=== PATIENT | female | born 1995 | race Caucasian/White ===

== ENCOUNTER 2019-09-12 01:23 | Inpatient (IN) | payer OTHER ==
[2019-09-12 02:02] VITALS: BMI 32.3
[2019-09-12] MEDS ORDERED: LACTATED RINGERS SOLUTION 1,000 ML/1,000 ML INFUS.BAG IV STA (02:08)
[2019-09-12] MEDS ORDERED: FAMOTIDINE 20 MG/50 ML IVPB 20 MG/50 ML MG IVPB ONE ×2 (02:08→02:40)
[2019-09-12] MEDS ORDERED: morphine CARPU-JECT 4 MG/1 ML DISP.SYRIN IVPUSH ONE ×2 (02:08→04:20)
--- NOTE | 2019-09-12 02:32 | PDOC ---
History of Present Illness - General Chief Complaint: Pain, Acute Stated Complaint: ABD PAIN Time Seen by Provider: 09/12/19 02:13 History Source: Patient Exam Limitations: No Limitations - History of Present Illness Initial Comments: 09/12/19 02:27 24 yo female no sig pmh, 3 months post ( full term C section delivery , no complications) presents to the ED with sudden onset abdominal pain. Pt states at 1 am she had sudden onset epigastric pain radiating straight through into her back described as sharp and stabbing with worsening intensity. Pt denies hx of abdominal pain in the past, no relation to eating. Pt admits to 2 episodes of NB/NB vomiting after abdominal pain. Denies F/C, CP, SOB, new foods , sick contacts. Past History - Past Medical History Allergies/Adverse Reactions: Allergies Allergy/AdvReac Type Severity Reaction Status Date / Time No Known Drug Allergies Allergy Verified 09/12/19 02:01 Home Medications: Ambulatory Orders Diphenhydramine [Benadryl -] 50 mg PO TID PRN #24 capsule 08/25/18 EPINEPHrine (EPI-PEN 0.3MG) [Epipen 0.3MG -] 0.3 mg IM ASDIR #2 pens 08/25/18 Prednisone [Prednisone 50 MG TABLETS] 50 mg PO DAILY #2 tablet 08/25/18 Anemia: Yes Asthma: No Cancer: No Cardiac Disorders: No CVA: No COPD: No CHF: No Dementia: No Diabetes: No GI Disorders: Yes (CONSTIPATION) Disorders: No HTN: No Hypercholesterolemia: No Liver Disease: No Seizures: No Thyroid Disease: No - Surgical History Abdominal Surgery: No Appendectomy: No Cardiac Surgery: No Cholecystectomy: No Lung Surgery: No Neurologic Surgery: No Orthopedic Surgery: Yes (ORIF R ANKLE) - Immunization History Immunization Up to Date: No - Psycho Social/Smoking Cessation Hx Smoking History: Never smoked Have you smoked in the past 12 months: No Hx Alcohol Use: No Drug/Substance Use Hx: No Substance Use Type: None Hx Substance Use Treatment: No Review of Systems - Review of Systems Constitutional: No: Chills, Fever Respiratory: No: Shortness of Breath Cardiac (ROS): No: Chest Pain ABD/GI: Yes: Nausea, Vomiting, Other (epigastric pain radiating to her back). No: Abdominal Distended, Constipated, Diarrhea Musculoskeletal: Yes: Back Pain Neurological: No: Headache, Numbness, Paresthesia *Physical Exam - Vital Signs Last Vital Signs Temp Pulse Resp BP Pulse Ox 98.5 F 98 H 17 133/98 97 09/12/19 01:25 09/12/19 01:25 09/12/19 01:25 09/12/19 01:25 09/12/19 01:25 - Physical Exam General Appearance: Yes: Nourished, Appropriately Dressed. No: Apparent Distress HEENT: positive: EOMI Neck: positive: Supple. negative: Carotid bruit Respiratory/Chest: positive: Lungs Clear, Normal Breath Sounds. negative: Respiratory Distress, Accessory Muscle Use, Crackles, Rales, Rhonchi, Stridor, Wheezing Cardiovascular: positive: Regular Rhythm, Regular Rate, S1, S2. negative: Edema , JVD, Murmur Vascular Pulses: Dorsalis-Pedis (R): 4+, Doralis-Pedis (L): 4+ Gastrointestinal/Abdominal: positive: Flat, Soft, Tenderness (epigastric), Other (positive sono murphys). negative: Pulsatile Mass, Protuberent, Distended , Guarding, Rebound Musculoskeletal: negative: CVA Tenderness Extremity: positive: Normal Capillary Refill, Normal Inspection, Normal Range of Motion Integumentary: positive: Normal Color, Dry, Warm Neurologic: positive: Fully Oriented, Alert, Normal Mood/Affect, Normal Response ED Treatment Course - LABORATORY CBC & Chemistry Diagram: 09/12/19 02:37 09/12/19 02:30 Medical Decision Making - Medical Decision Making 09/12/19 02:32 24 yo female no sig pmh, 3 months post ( full term C section delivery , no complications) presents to the ED with sudden onset abdominal pain. Pt states at 1 am she had sudden onset epigastric pain radiating straight through into her back described as sharp and stabbing with worsening intensity. Pt denies hx of abdominal pain in the past, no relation to eating. Pt admits to 2 episodes of NB/NB vomiting after abdominal pain. Denies F/C, CP, SOB, new foods , sick contacts. vitals WNL Pt appears uncomfortable holding her abdomen in pain. Fluids, pepcid and morphine ordered along with labs Pain relieved with morphine 09/12/19 05:03 bedside sono RUQ ED shows likely stones, 3.7 mm anterior GB wall thickening, distended CBD Will treat pt pain and keep for official sono AM Labs WNL mild elevation alk phos, AST/ALT Pt states pain returned, morphine re dosed will s/o to day team for f/u sono Pt required more pain control, 1mg Dilaudid given Discussed case with Dr. Black in Gen Surg, states pt should be given antibiotics and admitted. Pending official US S/O to day team [employer] sent Discharge - Discharge Information Problems reviewed: Yes Clinical Impression/Diagnosis: Abdominal pain Condition: Fair - Follow up/Referral - Patient Discharge Instructions - Post Discharge Activity
[2019-09-12] MEDS ORDERED: ONDANSETRON 4 MG/2 ML VIAL IVPUSH ONE (02:34)
[2019-09-12] MEDS ORDERED: morphine SULFATE 4 MG/ML VIAL ONE ×2 (02:39→04:19)
[2019-09-12] MEDS ORDERED: ONDANSETRON 4 MG/2 ML VIAL ONE (02:39)
[2019-09-12 02:57] LABS: BASO % 0.5 % (0-2.0); EOS % 4.3 % (0-4.5); HEMATOCRIT 39.3 % (32.4-45.2); HEMOGLOBIN 13.1 GM/dL (10.7-15.3); LYMPH % 24.3 % (8-40); MCH 29.8 pg (25.7-33.7); MCHC 33.2 g/dl (32.0-36.0); MEAN CELL VOLUME 89.6 fl (80-96); MEAN PLT VOLUME 9.2 fl (7.5-11.1); MONO % 6.2 % (3.8-10.2); NEUT % 64.7 % (42.8-82.8); PLATELET COUNT 272 K/MM3 (134-434); RBC 4.38 M/mm3 (3.60-5.2); RDW 13.2 % (11.6-15.6); WHITE BLOOD COUNT 11.4 K/mm3 (4.0-10.0)
[2019-09-12 03:11] LABS: INR 0.92 (0.83-1.09); PROTHROMBIN TIME (PATIENT) 10.8 SEC (9.7-13.0)
[2019-09-12 03:14] LABS: ACTIVATED PTT 35.8 SECONDS (25.2-36.5)
[2019-09-12 03:44] LABS: ALBUMIN 3.7 g/dl (3.4-5.0); BILIRUBIN,TOTAL 0.6 mg/dL (0.2-1); BLOOD UREA NITROGEN 22.2 mg/dL (7-18); CALCIUM 9.3 mg/dL (8.5-10.1); CREATININE 0.9 mg/dL (0.55-1.3); POTASSIUM 4.1 mmol/L (3.5-5.1); TOT PROT 7.5 g/dl (6.4-8.2)
--- NOTE | 2019-09-12 03:49 | PDOC ---
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 + nausea, no vomiting, no diarrhea. Pt immediately came to the ED, has approx 20 min of pain on presentation. Writhing in stretcher. - Physicial Exam PE: 09/12/19 03:47 NAD, writhing on stretcher RRR CTABL epig and RUQ ttp, + cazares's, + vol guarding, no rebound. A&O x 3 - Medical Decision Making 09/12/19 03:47 24yoF w/ acute onset of RUQ/epig severe pain just before ED arrival, concern for biliary colic. Bedside ultaround + stone, + GBW approx 3mm, CBD approx 6mm. - labs - official sono - ivf, pain control - Dispo per results.
[2019-09-12] MEDS ORDERED: HYDROmorphone HCL CARPU-JECT 2 MG/1 ML DISP.SYRIN IVPUSH ONE (05:57)
[2019-09-12] MEDS ORDERED: HYDROmorphone HCl 2 MG/ML VIAL ONE (06:24)
[2019-09-12] MEDS ORDERED: LACTATED RINGERS SOLUTION 1000 ML INFUS.BAG IV ONE (06:31)
[2019-09-12] MEDS ORDERED: CEFAZOLIN 1 GM/D5W 1 GM/50 ML BAG IVPB ONE (06:37)
[2019-09-12] MEDS ORDERED: CEFAZOLIN 1 GM/D5W 1 GM/50 ML BAG ONE (06:46)
[2019-09-12 09:41] LABS: ALBUMIN 3.2 g/dl (3.4-5.0); BILIRUBIN,TOTAL 0.2 mg/dL (0.2-1); BLOOD UREA NITROGEN 16.4 mg/dL (7-18); CALCIUM 8.5 mg/dL (8.5-10.1); CREATININE 0.8 mg/dL (0.55-1.3); POTASSIUM 4.3 mmol/L (3.5-5.1); TOT PROT 6.5 g/dl (6.4-8.2)
[2019-09-12] MEDS ORDERED: MORPHINE SULFATE 2 MG/ML VIAL ONE (12:45)
[2019-09-12] MEDS: MORPHINE SULFATE 2 MG/ML VIAL IVPUSH PRN ×3 (12:45→22:05)
[2019-09-12] MEDS: SODIUM CHLORIDE 1,000 ML IV SCH (13:37)
--- NOTE | 2019-09-12 15:30 | CONS ---
DATE OF CONSULTATION: 09/12/2019 REASON FOR CONSULTATION: Acute cholecystitis, cholelithiasis, abnormal liver function tests. BRIEF HISTORY: This is a 24-year-old female 3 months presents with epigastric right upper quadrant pain radiating to her back and shoulder. She was noted to have elevated liver function tests with an AST of 138, an ALT of 140, an alkaline phosphatase of 123 with elevated white blood cell count of 11.4 without a shift. She had an ultrasound done of her gallbladder, which shows stones, mild thickening, and a small amount of pericholecystic fluid with a normal-sized common bile duct. She is being admitted to the hospital for possible acute cholecystitis, and because of her elevated liver function tests, at my request is getting an MRCP to evaluate her bile duct. PAST MEDICAL HISTORY: Otherwise negative. PAST SURGICAL HISTORY: Significant for section. ALLERGIES: She has no known drug allergies. MEDICATIONS: She takes no medications. SOCIAL HISTORY: Negative for alcohol. Negative for tobacco. FAMILY HISTORY: Negative for malignancy in the immediate family. PHYSICAL EXAMINATION: General: This is a well-developed, well-nourished 24-year-old female in no distress. Vital Signs: She is afebrile. Her vital signs are stable. HEENT: Her head is normocephalic. Her sclerae are anicteric. Neck: Supple. Chest: Clear. Abdomen: Soft. She has mild right upper quadrant tenderness. She has minimal epigastric tenderness. She has no lower abdominal tenderness. She has a well-healed Pfannenstiel incision. Extremities: No edema. Review of her laboratory is as stated in HPI. ASSESSMENT: A 24-year-old female with right upper quadrant abdominal pain radiating to her back, nausea, and vomiting. She has ultrasound findings showing stones, some thickening, and possible cholecystic fluid, which could be consistent with acute cholecystitis. She also has elevated liver function tests, which could be consistent with choledocholithiasis versus fatty liver disease and mild sepsis. PLAN: At this point, we will get an MRCP to evaluate the common bile duct. If there is no evidence of choledocholithiasis, we will likely proceed with cholecystectomy this admission. Obviously, if there is evidence of choledocholithiasis, she will need a GI evaluation for ERCP. Patient is currently nontoxic. Recommend admission. Recommend IV antibiotics. Risks and benefits of surgery have been explained to the patient in detail. These are including, but not limited to, the possibility of conversion to open, the possibility of common bile duct injury, the possibility of cystic duct stump leak, possibility of injury to viscera, possibility of blood loss requiring blood transfusion, possibility of retained stone, possibility of future hernia, possibility of future obstruction plus a multitude of medical risks including, but not limited to, cardiac, neurologic, pulmonary, and vascular complications even . The patient understands these risks and is agreeable to surgery. DO DONA JIMÉNEZ/[id number]
--- NOTE | 2019-09-12 16:04 | HP ---
CHIEF COMPLAINT: Abd pain HISTORY OF PRESENT ILLNESS: Patient is a 24 yo Obese F with no significant pmh, 3 months (full term, no complications, ), presenting to the ED for sudden 10/10, epigastric abdominal pain that started at 1am last night that radiated to her back. Patient said this never happened to her before. She said she ate a smoothie a few hours before and does not associate the pain with food. She also admits to having nausea and 4 episodes of NBNB vomiting. Denies F/C, CP, SOB, new foods, sick contacts. In the ER bedside sono RUQ ED shows likely stones, 3.7 mm anterior GB wall thickening, distended CBD. Case was discussed case with Dr. Black (surger), and wanted patient admitted pending official ulrasound. ER course was notable for: (1) 2L IV fluids LR (2) Ancef (3) Morphine for pain Recent Travel: denies Social History: Smoking: denies Alcohol: denies Drugs: denies Allergies No Known Drug Allergies Allergy (Verified 09/12/19 02:01) HOME MEDICATIONS: Home Medications Medication Instructions Recorded NK [No Known Home Medication] 09/12/19 REVIEW OF SYSTEMS CONSTITUTIONAL: Absent: fever, chills, diaphoresis, generalized weakness, malaise, loss of appetite, weight change HEENT: Absent: rhinorrhea, nasal congestion, throat pain, throat swelling, difficulty swallowing, mouth swelling, ear pain, eye pain, visual changes CARDIOVASCULAR: Absent: chest pain, syncope, palpitations, irregular heart rate, lightheadedness , peripheral edema RESPIRATORY: Absent: cough, shortness of breath, dyspnea with exertion, orthopnea, wheezing, stridor, hemoptysis GASTROINTESTINAL: abd pain, nausea, vomiting Absent: abdominal distension, diarrhea, constipation, melena, hematochezia GENITOURINARY: Absent: dysuria, frequency, urgency, hesitancy, hematuria, flank pain, genital pain PHYSICAL EXAMINATION Vital Signs - 24 hr 09/12/19 09/12/19 09/12/19 01:25 07:04 13:06 Temperature 98.5 F 97.4 F L Pulse Rate 98 H Pulse Rate [ 76 92 H Left] Respiratory 17 18 18 Rate Blood Pressure 133/98 Blood Pressure 109/63 138/76 [Left Arm] O2 Sat by Pulse 97 99 99 Oximetry (%) 09/12/19 15:20 Temperature 97.8 F Pulse Rate Pulse Rate [ Left] Respiratory 58 H Rate Blood Pressure Blood Pressure 100/51 L [Left Arm] O2 Sat by Pulse 97 Oximetry (%) GENERAL: a/o x 3, in nad, comfortable HEAD: Normal with no signs of trauma. EYES: Pupils equal, round and reactive to light EARS, NOSE, THROAT: oropharynx clear without exudates. NECK:supple without lymphadenopathy, JVD, or masses. LUNGS: Breath sounds equal, clear to auscultation bilaterally. No wheezes, and no crackles. No accessory muscle use. HEART: Regular rate and rhythm, normal S1 and S2 without murmur, rub or gallop. ABDOMEN: Soft, mild epigastric tenderness, negative murphys, no guarding LOWER EXTREMITIES: 2+ pulses, warm, well-perfused. No calf tenderness. No peripheral edema. NEUROLOGICAL: Cranial nerves II-XII intact. Laboratory Results - last 24 hr 09/12/19 09/12/19 09/12/19 02:30 02:30 02:30 WBC RBC Hgb Hct MCV MCH MCHC RDW Plt Count MPV Absolute Neuts (auto) Neutrophils % Lymphocytes % Monocytes % Eosinophils % Basophils % Nucleated RBC % PT with INR INR PTT (Actin FS) Sodium 141 Potassium 4.1 Chloride 108 H Carbon Dioxide 25 Anion Gap 8 BUN 22.2 H Creatinine 0.9 Est GFR (CKD-EPI)AfAm 102.28 Est GFR (CKD-EPI)NonAf 88.25 Random Glucose 111 H Calcium 9.3 Total Bilirubin 0.6 AST 54 H ALT 69 H Alkaline Phosphatase 138 H Total Protein 7.5 Albumin 3.7 Lipase 107 Serum , Qual Negative Influenza A (Rapid) Influenza B (Rapid) Blood Type Antibody Screen 09/12/19 09/12/19 09/12/19 02:37 02:37 02:37 WBC 11.4 H RBC 4.38 Hgb 13.1 Hct 39.3 D MCV 89.6 MCH 29.8 MCHC 33.2 RDW 13.2 D Plt Count 272 D MPV 9.2 Absolute Neuts (auto) 7.4 Neutrophils % 64.7 Lymphocytes % 24.3 Monocytes % 6.2 Eosinophils % 4.3 Basophils % 0.5 Nucleated RBC % 0 PT with INR 10.80 INR 0.92 PTT (Actin FS) 35.8 Sodium Potassium Chloride Carbon Dioxide Anion Gap BUN Creatinine Est GFR (CKD-EPI)AfAm Est GFR (CKD-EPI)NonAf Random Glucose Calcium Total Bilirubin AST ALT Alkaline Phosphatase Total Protein Albumin Lipase Serum , Qual Influenza A (Rapid) Influenza B (Rapid) Blood Type O POSITIVE Antibody Screen Negative 09/12/19 09/12/19 08:55 13:05 WBC RBC Hgb Hct MCV MCH MCHC RDW Plt Count MPV Absolute Neuts (auto) Neutrophils % Lymphocytes % Monocytes % Eosinophils % Basophils % Nucleated RBC % PT with INR INR PTT (Actin FS) Sodium 140 Potassium 4.3 Chloride 109 H Carbon Dioxide 25 Anion Gap 6 L BUN 16.4 Creatinine 0.8 Est GFR (CKD-EPI)AfAm 117.93 Est GFR (CKD-EPI)NonAf 101.75 Random Glucose 92 Calcium 8.5 Total Bilirubin 0.2 AST 138 H ALT 140 H Alkaline Phosphatase 123 H Total Protein 6.5 Albumin 3.2 L Lipase Serum , Qual Influenza A (Rapid) Negative Influenza B (Rapid) Negative Blood Type Antibody Screen ASSESSMENT/PLAN: 24 yo Obese F with no significant pmh, 3 months (full term, no complications, ), presenting to the ED for sudden 10/10, epigastric abdominal pain that started at 1am last night that radiated to her back. #Abdominal pain -r/o acute cholecystitis vs choledochololithiasis -official US: small gallstones with wall thickening and trace of pericholcystic fluid. borderline hepatomegaly with fatty liver -MRCP ordered to rule out choledo -Surgery on board: Dr. Black -pain control with morphine -cxr unremarkable -UA -npo after midnight -IV fluids -clear liquid diet for now #transaminitis -could be from above problem -send hep panel -ggt -GI consult #FEN -iv fluids -monitor -clear liquid. make npo if surgery required #dvt ppx -eab -hep sq Visit type - Emergency Visit Emergency Visit: Yes ED Registration Date: 09/12/19 Care time: The patient presented to the Emergency Department on the above date and was hospitalized for further evaluation of their emergent condition. - New Patient This patient is new to me today: Yes Date on this admission: 09/12/19 - Critical Care Critical Care patient: No ATTENDING PHYSICIAN STATEMENT I saw and evaluated the patient. I reviewed the resident's note and discussed the case with the resident. I agree with the resident's findings and plan as documented. SUBJECTIVE: OBJECTIVE: ASSESSMENT AND PLAN:
--- NOTE | 2019-09-12 18:01 | PN ---
Physical Exam: 24 female, no reported PMHx, 3 months (full term, no complications, ), presenting to the ED for sudden 10/10, epigastric abdominal pain that started at 1am last night that radiated to her back. Patient endorses she had eaten some potato chips and a smoothie, began to breast feed when she started to full sharp epigastric pain radiating to back a/ w 4 episodes NBNB vomiting. Patient endorses first time she experiences abdominal pain like this. Denies F/C, CP, SOB, new foods, sick contacts. RUQ US shows thickened GB w/ trace pericholecytic free fluid and small intraluminal stones w/ no intra/extra hepatic bile duct dilatation, cazares sign negative. Patient to be evaluated by Surgery service for possible lap jose francisco. PE GA mild distress, AAox3, speaking in full sentences HEENT NC/AT, EOMI, MMM, neck supple Chest CTAB, no crackles or wheezing CVS s1, S2+, RRR, no m/r/g Abd obese, soft, mild epigastric tenderness to deep palpation, BS+, no guarding , no HSM Ext No LE edema, no calf tenderness, moves all 4 ext no CVA tenderness, no pelvic/suprapubic tenderness Vital Signs - 24 hr 09/12/19 09/12/19 09/12/19 01:25 07:04 13:06 Temperature 98.5 F 97.4 F L Pulse Rate 98 H Pulse Rate [ 76 92 H Left] Respiratory 17 18 18 Rate Blood Pressure 133/98 Blood Pressure 109/63 138/76 [Left Arm] O2 Sat by Pulse 97 99 99 Oximetry (%) 09/12/19 15:20 Temperature 97.8 F Pulse Rate Pulse Rate [ Left] Respiratory 58 H Rate Blood Pressure Blood Pressure 100/51 L [Left Arm] O2 Sat by Pulse 97 Oximetry (%) Laboratory Results - last 24 hr 09/12/19 09/12/19 09/12/19 02:30 02:30 02:30 WBC RBC Hgb Hct MCV MCH MCHC RDW Plt Count MPV Absolute Neuts (auto) Neutrophils % Lymphocytes % Monocytes % Eosinophils % Basophils % Nucleated RBC % PT with INR INR PTT (Actin FS) Sodium 141 Potassium 4.1 Chloride 108 H Carbon Dioxide 25 Anion Gap 8 BUN 22.2 H Creatinine 0.9 Est GFR (CKD-EPI)AfAm 102.28 Est GFR (CKD-EPI)NonAf 88.25 Random Glucose 111 H Calcium 9.3 Total Bilirubin 0.6 AST 54 H ALT 69 H Alkaline Phosphatase 138 H Total Protein 7.5 Albumin 3.7 Lipase 107 Serum , Qual Negative Influenza A (Rapid) Influenza B (Rapid) Blood Type Antibody Screen 09/12/19 09/12/19 09/12/19 02:37 02:37 02:37 WBC 11.4 H RBC 4.38 Hgb 13.1 Hct 39.3 D MCV 89.6 MCH 29.8 MCHC 33.2 RDW 13.2 D Plt Count 272 D MPV 9.2 Absolute Neuts (auto) 7.4 Neutrophils % 64.7 Lymphocytes % 24.3 Monocytes % 6.2 Eosinophils % 4.3 Basophils % 0.5 Nucleated RBC % 0 PT with INR 10.80 INR 0.92 PTT (Actin FS) 35.8 Sodium Potassium Chloride Carbon Dioxide Anion Gap BUN Creatinine Est GFR (CKD-EPI)AfAm Est GFR (CKD-EPI)NonAf Random Glucose Calcium Total Bilirubin AST ALT Alkaline Phosphatase Total Protein Albumin Lipase Serum , Qual Influenza A (Rapid) Influenza B (Rapid) Blood Type O POSITIVE Antibody Screen Negative 09/12/19 09/12/19 08:55 13:05 WBC RBC Hgb Hct MCV MCH MCHC RDW Plt Count MPV Absolute Neuts (auto) Neutrophils % Lymphocytes % Monocytes % Eosinophils % Basophils % Nucleated RBC % PT with INR INR PTT (Actin FS) Sodium 140 Potassium 4.3 Chloride 109 H Carbon Dioxide 25 Anion Gap 6 L BUN 16.4 Creatinine 0.8 Est GFR (CKD-EPI)AfAm 117.93 Est GFR (CKD-EPI)NonAf 101.75 Random Glucose 92 Calcium 8.5 Total Bilirubin 0.2 AST 138 H ALT 140 H Alkaline Phosphatase 123 H Total Protein 6.5 Albumin 3.2 L Lipase Serum , Qual Influenza A (Rapid) Negative Influenza B (Rapid) Negative Blood Type Antibody Screen Home Medications Medication Instructions Recorded NK [No Known Home Medication] 09/12/19 Current Medications Generic Name Dose Route Start Last Admin Trade Name Freq PRN Reason Stop Dose Admin Heparin Sodium (Porcine) 5,000 unit 09/12/19 22:00 Heparin - SQ 09/13/19 00:00 BID LONNY Sodium Chloride 1,000 mls @ 83 mls/hr 09/12/19 12:00 09/12/19 13:37 Normal Saline - IV 83 mls/hr ASDIR LONNY Administration Morphine Sulfate 2 mg 09/12/19 11:52 09/12/19 17:47 Morphine Sulfate IVPUSH 2 mg Q4H PRN Administration PAIN LEVEL 6-10 A/P: 24 obese F presents with sudden epigastric pain radiaiting to back after eating potato chips and a smoothie, admitted for management of suspected acute cholecystitis. Epigastric pain radiaiting to back lipase normal, unlikely d/t pancreatitis, HCG negative, biliary US findings suggestive of ?acute cholecystitis MRCP ordered to rule out choledolithiasis IVF, pain control, UA, coags, CXR Surgery on board: Dr. Black Transaminitis CBD normal, ?fatty liver infiltration v.s. choledolithiasis, will need MRCP prior to cholecystectomy send Hepatitis panel (?Hep A), GGT GI consult FEN -iv fluids -monitor -clear liquid. make npo if surgery required DVT ppx: Heparin SC Med surg Visit type - Emergency Visit Emergency Visit: Yes ED Registration Date: 09/12/19 Care time: The patient presented to the Emergency Department on the above date and was hospitalized for further evaluation of their emergent condition. - New Patient This patient is new to me today: Yes Date on this admission: 09/12/19 - Critical Care Critical Care patient: No - Discharge Referral Referred to [facility] No
[2019-09-12] MEDS ORDERED: HEPARIN NA (PORCINE) 5,000 UNITS/ML 1ML VIAL SQ SCH (22:00)
[2019-09-13] MEDS: MORPHINE SULFATE 2 MG/ML VIAL IVPUSH PRN ×2 (02:04→06:36)
[2019-09-13 08:15] LABS: BASO % 0.4 % (0-2.0); EOS % 6.9 % (0-4.5); HEMATOCRIT 33.6 % (32.4-45.2); HEMOGLOBIN 11.4 GM/dL (10.7-15.3); LYMPH % 46.3 % (8-40); MCH 30.3 pg (25.7-33.7); MEAN PLT VOLUME 8.8 fl (7.5-11.1); MONO % 7.9 % (3.8-10.2); NEUT % 38.5 % (42.8-82.8); PLATELET COUNT 224 K/MM3 (134-434); RBC 3.77 M/mm3 (3.60-5.2); RDW 13.2 % (11.6-15.6); WHITE BLOOD COUNT 5.8 K/mm3 (4.0-10.0)
[2019-09-13 08:32] LABS: BILIRUBIN,TOTAL 0.5 mg/dL (0.2-1); BLOOD UREA NITROGEN 10.8 mg/dL (7-18); CALCIUM 8.6 mg/dL (8.5-10.1); CREATININE 0.8 mg/dL (0.55-1.3); MAGNESIUM 2.1 mg/dL (1.8-2.4); POTASSIUM 3.8 mmol/L (3.5-5.1)
[2019-09-13] MEDS: SODIUM CHLORIDE 1,000 ML IV SCH ×2 (08:59→12:00)
[2019-09-13] MEDS ORDERED: MORPHINE SULFATE 2 MG/ML VIAL IVPUSH ONE (09:45)
[2019-09-13 09:58] LABS: HYALINE CASTS 1 /lpf (0-8); URINE APPEARANCE CLEAR; URINE BACTERIA 9.1 /hpf (NEGATIVE); URINE BILIRUBIN NEGATIVE (NEGATIVE); URINE COLOR YELLOW; URINE GLUCOSE (UA) NEGATIVE (NEGATIVE); URINE KETONE NEGATIVE (NEGATIVE); URINE LEUK ESTERASE NEGATIVE (NEGATIVE); URINE NITRITE NEGATIVE (NEGATIVE); URINE PROTEIN NEGATIVE (NEGATIVE); URINE UROBILINOGEN 0.2 mg/dL (0.2-1.0); URINE WBC 5 /hpf (0-5)
--- NOTE | 2019-09-13 10:48 | PN ---
Progress Note (short form) - Note Progress Note: surgery MRI suboptimal study but consistent with cholecystitis and not choledocholithiasis. lfts improved. will proceed with cholecystectomy
[2019-09-13] MEDS ORDERED: morphine CARPU-JECT 10 MG/1 ML DISP.SYRIN IVPB PRN (10:52)
[2019-09-13] MEDS ORDERED: ACETAMINOPHEN 325 MG TABLET (FP) PO PRN (10:52)
[2019-09-13] MEDS ORDERED: ROCURONIUM BROMIDE 50 MG/5 ML SYRINGE ONE (10:54)
[2019-09-13] MEDS ORDERED: IBUPROFEN 800 MG/8 ML IJ IVPB PRN (10:54)
[2019-09-13] MEDS ORDERED: DEXAMETHASONE SOD PHOSPHATE 4 MG/1 ML VIAL ONE (10:54)
--- NOTE | 2019-09-13 10:56 | EKG ---
Test Reason : Blood Pressure : / mmHG Vent. Rate : 052 BPM Atrial Rate : 052 BPM P-R Int : 166 ms QRS Dur : 080 ms QT Int : 462 ms P-R-T Axes : 047 046 039 degrees QTc Int : 429 ms SINUS BRADYCARDIA WITH SINUS ARRHYTHMIA OTHERWISE NORMAL ECG NO PREVIOUS ECGS AVAILABLE Confirmed by Galindo Nur MD ([id number]) on 09/13/2019 10:56:29 AM Referred By: GARRETT BOCANEGRA DR Confirmed By:Galindo Nur MD
[2019-09-13] MEDS ORDERED: ERTAPENEM SODIUM 1 GM in SODIUM CHLORIDE 50 ML IVPB ONE ×2 (11:00→13:00)
--- NOTE | 2019-09-13 11:00 | OP ---
Operative Note - Note: Operative Date: 09/13/19 Pre-Operative Diagnosis: acute cholecystitis, cholelithiasis Operation: laparoscopic cholecystectomy, lavage Findings: thickened, inflamed gb Post-Operative Diagnosis: Same as Pre-op Surgeon: Santos Black Anesthesiologist/ACTIVITIES ASSISTANT: Cathie Urbano Anesthesia: General Specimens Removed: gb Estimated Blood Loss (mls): 10 Operative Report Dictated: Yes
[2019-09-13 11:20] LABS: URINE CRYSTALS CALCIUM OXALATE /hpf; YEAST NEGATIVE (NEGATIVE)
[2019-09-13] MEDS ORDERED: ERTAPENEM SODIUM 1 GM VIAL IVPB ONE (11:30)
[2019-09-13] MEDS ORDERED: ONDANSETRON 4 MG/2 ML VIAL ONE (12:51)
[2019-09-13] MEDS ORDERED: ONDANSETRON 4 MG/2 ML VIAL IVPUSH ONE (12:54)
--- NOTE | 2019-09-13 13:22 | OP ---
DATE OF OPERATION: 09/13/2019 PREOPERATIVE DIAGNOSIS: Acute cholecystitis, cholelithiasis. POSTOPERATIVE DIAGNOSIS: Acute cholecystitis, cholelithiasis. PROCEDURE: Laparoscopic cholecystectomy, lavage. SURGEON: Santos Black DO [employer] ASSEMBLER: TAHMINA Zuñiga ANESTHESIOLOGIST: Connie Foy MD INTRAOPERATIVE FINDINGS: A thick and inflamed, distended gallbladder. BLOOD LOSS: Minimal. SPECIMEN: Gallbladder. DRAINS: None. DESCRIPTION OF PROCEDURE: After general anesthesia was initiated, the abdomen was prepped and draped in sterile fashion. The patient received intravenous antibiotic. A transverse incision was made infraumbilical with scalpel used to go through skin and subcutaneous tissue. The fascia was then lifted with Ariela clamp. Veress needle was inserted. Pneumoperitoneum was created. Next, a 10-mm 0-degree laparoscope was inserted followed by insertion of an additional 11-mm trocar subxiphoid. Two 5-mm trocars were placed in the right upper quadrant. Attention was then turned toward the gallbladder. It was engorged, edematous, distended consistent with acute cholecystitis. The fundus was lifted cephalad. The infundibulum retracted laterally. The peritoneal peel was dissected down exposing a small cystic duct and cystic artery. Although there was a negative MRCP, the study was suboptimal, and there were mildly elevated liver function tests; therefore, a stapling of the cystic duct was done with a multifire, vascular firing, and when firing, the staple line was inspected. It was intact. There was no bleeding, no breaks, no signs of ischemia. The cystic artery was clipped and divided. The gallbladder was then liberated from the liver bed using electrocautery, and hemostasis was maintained using electrocautery. The gallbladder was then placed in a specimen bag, removed through the infraumbilical trocar site after mild fascial dilatation. Sent to Pathology marked as specimen. A vigorous lavage was done, and all return was clear. Trocars were removed under direct visualization as pneumoperitoneum was released , and no bleeding was noted. At this point, the fascia of the infraumbilical trocar site and the subxiphoid trocar site was closed with multiple interrupted 0 Vicryl sutures. The 4 skin incisions were closed with Biosyn. Dermabond dressing was placed. Overall, the patient tolerated the procedure well and the operation terminated. DO DONA JIMÉNEZ/[id number] [place]
--- NOTE | 2019-09-13 13:38 | SURG ---
Surgery Wash House Worker Note Wash House Worker: Cathie Urbano PA-C Date of Service: 09/13/19 Diagnosis: acute cholecystitis, cholelithiasis Procedure: laparoscopic cholecystectomy, lavage I was present for the entirety of the operative procedure. For further detail, please refer to operative report. Visit type - Case Type Case Type: ED Admission - Emergency Emergency Visit: Yes ED Registration Date: 09/12/19 Care time: The patient presented to the Emergency Department on the above date and was hospitalized for further evaluation of their emergent condition. - New patient This patient is new to me today: Yes Date on this admission: 09/13/19
[2019-09-13] MEDS: D5-1/2NS+20 MEQ KCL - 20 MEQ/1,000 ML INFUS.BAG IV SCH (14:35)
--- NOTE | 2019-09-13 15:03 | PN ---
Physical Exam: SUBJECTIVE: Patient seen and examined this am. complaining of epigastric pain. OBJECTIVE: Vital Signs Period Temp Pulse Resp BP Sys/Medrano Pulse Ox Last 24 Hr 97.3 F-98.6 F 51-97 13-58 100-143/51-95 96-100 GENERAL: a/o x 3, in NAD HEAD: Normal with no signs of trauma. EYES: PERRL, conjunctiva clear ENT: oropharynx clear without exudates, moist mucous membranes. NECK: supple. LUNGS: Breath sounds equal, clear to auscultation bilaterally HEART: Regular rate and rhythm, S1, S2 without murmur, rub or gallop. ABDOMEN: Soft, mild tenderness to palpation. +cazares today EXTREMITIES: 2+ pulses, warm, well-perfused, no edema. Laboratory Results - last 24 hr 09/12/19 09/13/19 09/13/19 17:15 06:43 06:43 WBC 5.8 RBC 3.77 Hgb 11.4 Hct 33.6 MCV 89.0 MCH 30.3 MCHC 34.0 RDW 13.2 Plt Count 224 MPV 8.8 Absolute Neuts (auto) 2.2 Neutrophils % 38.5 L D Lymphocytes % 46.3 H D Monocytes % 7.9 Eosinophils % 6.9 H Basophils % 0.4 Nucleated RBC % 0 Sodium 140 Potassium 3.8 Chloride 109 H Carbon Dioxide 25 Anion Gap 6 L BUN 10.8 Creatinine 0.8 Est GFR (CKD-EPI)AfAm 117.93 Est GFR (CKD-EPI)NonAf 101.75 Random Glucose 83 Calcium 8.6 Phosphorus 4.0 Magnesium 2.1 Total Bilirubin 0.5 GGT 192 H AST 52 H ALT 101 H Alkaline Phosphatase 106 Total Protein 6.0 L Albumin 3.0 L Urine Color Urine Appearance Urine pH Ur Specific [place] Urine Protein Urine Glucose (UA) Urine Ketones Urine Blood Urine Nitrite Urine Bilirubin Urine Urobilinogen Ur Leukocyte Esterase Urine WBC (Auto) Urine Casts (Auto) U Epithel Cells (Auto) Urine Crystals (Auto) Urine Bacteria (Auto) Urine Yeast (Auto) 09/13/19 08:00 WBC RBC Hgb Hct MCV MCH MCHC RDW Plt Count MPV Absolute Neuts (auto) Neutrophils % Lymphocytes % Monocytes % Eosinophils % Basophils % Nucleated RBC % Sodium Potassium Chloride Carbon Dioxide Anion Gap BUN Creatinine Est GFR (CKD-EPI)AfAm Est GFR (CKD-EPI)NonAf Random Glucose Calcium Phosphorus Magnesium Total Bilirubin GGT AST ALT Alkaline Phosphatase Total Protein Albumin Urine Color Yellow Urine Appearance Clear Urine pH 6.0 Ur Specific [place] 1.018 Urine Protein Negative Urine Glucose (UA) Negative Urine Ketones Negative Urine Blood Trace Urine Nitrite Negative Urine Bilirubin Negative Urine Urobilinogen 0.2 Ur Leukocyte Esterase Negative Urine WBC (Auto) 5 Urine Casts (Auto) 1 U Epithel Cells (Auto) 4.0 Urine Crystals (Auto) Calcium oxalate Urine Bacteria (Auto) 9.1 Urine Yeast (Auto) Negative Active Medications Generic Name Dose Route Start Last Admin Trade Name Freq PRN Reason Stop Dose Admin Acetaminophen 650 mg 09/13/19 10:52 Tylenol - PO Q4H PRN FEVER Enoxaparin Sodium 40 mg 09/14/19 10:00 Lovenox - SQ DAILY [facility] Potassium Chloride/Dextrose/Sod Cl 20 meq in 1,000 mls @ 100 mls/hr 09/13/19 11:00 D5-1/2ns+20 Meq Kcl - IV ASDIR LONNY Ertapenem 1 gm/ Sodium 50 mls @ 100 mls/hr 09/14/19 08:00 Chloride IVPB 09/14/19 08:29 ONCE ONE Ibuprofen 800 mg 09/13/19 10:54 Caldolor Injection - IVPB Q6H PRN FEVER Morphine Sulfate 8 mg 09/13/19 10:52 Morphine Injection - IVPB Q3H PRN PAIN LEVEL 7 - 10 Oxycodone HCl 7.5 mg 09/13/19 10:52 Roxicodone - PO Q4H PRN PAIN LEVEL 4 - 6 Pantoprazole Sodium 40 mg 09/14/19 10:00 Protonix Iv IVPUSH DAILY LONNY -official US: small gallstones with wall thickening and trace of pericholcystic fluid. borderline hepatomegaly with fatty liver ASSESSMENT/PLAN: 24 yo Obese F with no significant pmh, 3 months (full term, no complications, ), presenting to the ED for sudden 10/10, epigastric abdominal pain that started at 1am last night that radiated to her back. #Acute cholecystitis -s/p Lap choly POD #0 -MRCP suboptimal study but consistent with cholecystitis and not choledocholithiasis. -Surgery on board: Dr. Black -pain control with morphine -cxr unremarkable -UA -regular diet -IV fluids. dc in am after breakfast #transaminitis -likely from above problem -pending hep panel -GI on board -fu am labs #FEN -iv fluids -monitor -regular diet #dvt ppx -eab -lovenox sq Visit type - Emergency Visit Emergency Visit: Yes ED Registration Date: 09/12/19 Care time: The patient presented to the Emergency Department on the above date and was hospitalized for further evaluation of their emergent condition. - New Patient This patient is new to me today: Yes Date on this admission: 09/13/19 - Critical Care Critical Care patient: No ATTENDING PHYSICIAN STATEMENT I saw and evaluated the patient. I reviewed the resident's note and discussed the case with the resident. I agree with the resident's findings and plan as documented. SUBJECTIVE: OBJECTIVE: ASSESSMENT AND PLAN:
--- NOTE | 2019-09-13 15:04 | PN ---
Progress Note (short form) - Note Progress Note: BRIEF GI NOTE PATIENT WAS IN THE OR FOR LAP SELVIN AND THEREFORE COULD NOT BE EVALUATED. CHART WAS REVIEWED - MRI CONSISTENT WITH ACUTE CHOLECYSTITIS ; NO SIGN OF BILIARY DUCT DILATION OR CHOLEDOCHOLITHIASIS. VIRAL HEPATITIS SEROLOGY ARE PENDING TRANSAMINITIS IS MOST CONSISTENT WITH ACUTE CHOLECYSTITIS. - CONTINUE PLAN OF CARE PER SURGERY TEAM - PLEASE RE-CONSULT GI WITH ANY QUESTIONS OR CONCERNS.
[2019-09-13] MEDS: morphine SULFATE 4 MG/ML VIAL IVPB PRN ×2 (15:47→21:45)
--- NOTE | 2019-09-13 17:49 | PN ---
Teaching Attending Note Name of Resident: Artis Meneses ATTENDING PHYSICIAN STATEMENT I saw and evaluated the patient. I reviewed the resident's note and discussed the case with the resident. I agree with the resident's findings and plan as documented. SUBJECTIVE: Seen and examined at bedside. pain is 6/10 post-op. has not passed flatus or BM. OBJECTIVE: PE: GENERAL: NAD LUNGS: CTA b/l, unlabored, no wrr HEART: RRR, s1s2, rrr ABDOMEN: Soft, tenderness to palpation incision sites, no guarding or rebound EXTREMITIES: no edema Vital Signs - 24 hr 09/12/19 09/12/19 09/12/19 18:00 18:43 19:48 Temperature 98.5 F 98.6 F Pulse Rate 57 L 82 Respiratory 18 18 18 Rate Blood Pressure 123/67 118/82 O2 Sat by Pulse 97 97 Oximetry (%) 09/12/19 09/12/19 09/13/19 21:00 22:00 02:00 Temperature 97.5 F L 98.1 F Pulse Rate 61 51 L Respiratory 18 18 Rate Blood Pressure 100/60 O2 Sat by Pulse 97 Oximetry (%) 09/13/19 09/13/19 09/13/19 02:17 06:00 09:00 Temperature 97.8 F Pulse Rate 51 L Respiratory 18 18 Rate Blood Pressure 110/70 106/70 O2 Sat by Pulse 98 Oximetry (%) 09/13/19 09/13/19 09/13/19 09:19 12:10 12:25 Temperature 97.3 F L 98.4 F Pulse Rate 52 L 78 87 Respiratory 18 22 H 20 Rate Blood Pressure 110/61 136/95 143/84 O2 Sat by Pulse 100 96 Oximetry (%) 09/13/19 09/13/19 09/13/19 12:40 12:55 13:10 Temperature Pulse Rate 83 70 67 Respiratory 19 13 13 Rate Blood Pressure 138/93 127/77 127/77 O2 Sat by Pulse 100 97 97 Oximetry (%) 09/13/19 09/13/19 09/13/19 13:25 13:40 13:55 Temperature Pulse Rate 69 97 H 69 Respiratory 13 16 13 Rate Blood Pressure 120/64 123/67 115/75 O2 Sat by Pulse 97 100 100 Oximetry (%) 09/13/19 09/13/19 09/13/19 14:00 14:10 14:13 Temperature 98.5 F 98.1 F Pulse Rate 70 67 66 Respiratory 18 13 18 Rate Blood Pressure 132/76 117/75 121/73 O2 Sat by Pulse 100 98 Oximetry (%) Current Medications Acetaminophen (Tylenol -) 650 mg PO Q4H PRN PRN Reason: FEVER Enoxaparin Sodium (Lovenox -) 40 mg SQ DAILY [facility] Potassium Chloride/Dextrose/Sod Cl (D5-1/2ns+20 Meq Kcl -) 20 meq in 1,000 mls @ 100 mls/hr IV ASDIR LONNY Last Admin: 09/13/19 14:35 Dose: Not Given Ertapenem 1 gm/ Sodium (Chloride) 50 mls @ 100 mls/hr IVPB ONCE ONE Stop: 09/14/19 08:29 Ibuprofen (Caldolor Injection -) 800 mg IVPB Q6H PRN PRN Reason: FEVER Morphine Sulfate (Morphine Sulfate) 8 mg IVPB Q3H PRN PRN Reason: PAIN LEVEL 7 - 10 Last Admin: 09/13/19 15:47 Dose: 8 mg Oxycodone HCl (Roxicodone -) 7.5 mg PO Q4H PRN PRN Reason: PAIN LEVEL 4 - 6 Pantoprazole Sodium (Protonix Iv) 40 mg IVPUSH DAILY [facility] Laboratory Tests 09/12/19 09/12/19 09/12/19 02:30 02:30 02:30 WBC RBC Hgb Hct MCV MCH MCHC RDW Plt Count MPV Absolute Neuts (auto) Neutrophils % Lymphocytes % Monocytes % Eosinophils % Basophils % Nucleated RBC % PT with INR INR PTT (Actin FS) Sodium 141 Potassium 4.1 Chloride 108 H Carbon Dioxide 25 Anion Gap 8 BUN 22.2 H Creatinine 0.9 Est GFR (CKD-EPI)AfAm 102.28 Est GFR (CKD-EPI)NonAf 88.25 Random Glucose 111 H Calcium 9.3 Phosphorus Magnesium Total Bilirubin 0.6 GGT AST 54 H ALT 69 H Alkaline Phosphatase 138 H Total Protein 7.5 Albumin 3.7 Lipase 107 Serum , Qual Negative Urine Color Urine Appearance Urine pH Ur Specific [place] Urine Protein Urine Glucose (UA) Urine Ketones Urine Blood Urine Nitrite Urine Bilirubin Urine Urobilinogen Ur Leukocyte Esterase Urine WBC (Auto) Urine Casts (Auto) U Epithel Cells (Auto) Urine Crystals (Auto) Urine Bacteria (Auto) Urine Yeast (Auto) Influenza A (Rapid) Influenza B (Rapid) Blood Type Antibody Screen 09/12/19 09/12/19 09/12/19 02:37 02:37 02:37 WBC 11.4 H RBC 4.38 Hgb 13.1 Hct 39.3 D MCV 89.6 MCH 29.8 MCHC 33.2 RDW 13.2 D Plt Count 272 D MPV 9.2 Absolute Neuts (auto) 7.4 Neutrophils % 64.7 Lymphocytes % 24.3 Monocytes % 6.2 Eosinophils % 4.3 Basophils % 0.5 Nucleated RBC % 0 PT with INR 10.80 INR 0.92 PTT (Actin FS) 35.8 Sodium Potassium Chloride Carbon Dioxide Anion Gap BUN Creatinine Est GFR (CKD-EPI)AfAm Est GFR (CKD-EPI)NonAf Random Glucose Calcium Phosphorus Magnesium Total Bilirubin GGT AST ALT Alkaline Phosphatase Total Protein Albumin Lipase Serum , Qual Urine Color Urine Appearance Urine pH Ur Specific [place] Urine Protein Urine Glucose (UA) Urine Ketones Urine Blood Urine Nitrite Urine Bilirubin Urine Urobilinogen Ur Leukocyte Esterase Urine WBC (Auto) Urine Casts (Auto) U Epithel Cells (Auto) Urine Crystals (Auto) Urine Bacteria (Auto) Urine Yeast (Auto) Influenza A (Rapid) Influenza B (Rapid) Blood Type O POSITIVE Antibody Screen Negative 09/12/19 09/12/19 09/12/19 08:55 13:05 17:15 WBC RBC Hgb Hct MCV MCH MCHC RDW Plt Count MPV Absolute Neuts (auto) Neutrophils % Lymphocytes % Monocytes % Eosinophils % Basophils % Nucleated RBC % PT with INR INR PTT (Actin FS) Sodium 140 Potassium 4.3 Chloride 109 H Carbon Dioxide 25 Anion Gap 6 L BUN 16.4 Creatinine 0.8 Est GFR (CKD-EPI)AfAm 117.93 Est GFR (CKD-EPI)NonAf 101.75 Random Glucose 92 Calcium 8.5 Phosphorus Magnesium Total Bilirubin 0.2 GGT 192 H AST 138 H ALT 140 H Alkaline Phosphatase 123 H Total Protein 6.5 Albumin 3.2 L Lipase Serum , Qual Urine Color Urine Appearance Urine pH Ur Specific [place] Urine Protein Urine Glucose (UA) Urine Ketones Urine Blood Urine Nitrite Urine Bilirubin Urine Urobilinogen Ur Leukocyte Esterase Urine WBC (Auto) Urine Casts (Auto) U Epithel Cells (Auto) Urine Crystals (Auto) Urine Bacteria (Auto) Urine Yeast (Auto) Influenza A (Rapid) Negative Influenza B (Rapid) Negative Blood Type Antibody Screen 09/13/19 09/13/19 09/13/19 06:43 06:43 08:00 WBC 5.8 RBC 3.77 Hgb 11.4 Hct 33.6 MCV 89.0 MCH 30.3 MCHC 34.0 RDW 13.2 Plt Count 224 MPV 8.8 Absolute Neuts (auto) 2.2 Neutrophils % 38.5 L D Lymphocytes % 46.3 H D Monocytes % 7.9 Eosinophils % 6.9 H Basophils % 0.4 Nucleated RBC % 0 PT with INR INR PTT (Actin FS) Sodium 140 Potassium 3.8 Chloride 109 H Carbon Dioxide 25 Anion Gap 6 L BUN 10.8 Creatinine 0.8 Est GFR (CKD-EPI)AfAm 117.93 Est GFR (CKD-EPI)NonAf 101.75 Random Glucose 83 Calcium 8.6 Phosphorus 4.0 Magnesium 2.1 Total Bilirubin 0.5 GGT AST 52 H ALT 101 H Alkaline Phosphatase 106 Total Protein 6.0 L Albumin 3.0 L Lipase Serum , Qual Urine Color Yellow Urine Appearance Clear Urine pH 6.0 Ur Specific [place] 1.018 Urine Protein Negative Urine Glucose (UA) Negative Urine Ketones Negative Urine Blood Trace Urine Nitrite Negative Urine Bilirubin Negative Urine Urobilinogen 0.2 Ur Leukocyte Esterase Negative Urine WBC (Auto) 5 Urine Casts (Auto) 1 U Epithel Cells (Auto) 4.0 Urine Crystals (Auto) Calcium oxalate Urine Bacteria (Auto) 9.1 Urine Yeast (Auto) Negative Influenza A (Rapid) Influenza B (Rapid) Blood Type Antibody Screen ASSESSMENT AND PLAN: 24 y/o obese female with no significant pmhx, 3 months (full term, no complications, ), presenting to the ED for sudden 10/10, epigastric abdominal pain that radiated to her back. 1) Acute cholecystitis s/p lap jose francisco- POD # 0 -pain control -resume diet, dc fluids -monitor labs -GI and surgery on board
[2019-09-13] MEDS: oxyCODONE HCL 5 MG TABLET PO PRN (23:36)
[2019-09-14] MEDS: D5-1/2NS+20 MEQ KCL - 20 MEQ/1,000 ML INFUS.BAG IV SCH ×2 (00:06→11:13)
[2019-09-14] MEDS: morphine SULFATE 4 MG/ML VIAL IVPB PRN (04:16)
[2019-09-14] MEDS: oxyCODONE HCL 5 MG TABLET PO PRN ×3 (07:10→21:45)
[2019-09-14] MEDS ORDERED: ERTAPENEM SODIUM 1 GM in SODIUM CHLORIDE 50 ML IVPB ONE (08:00)
[2019-09-14] MEDS ORDERED: PT OWN MED DRAWER 7, Y5N ONE (08:48)
--- NOTE | 2019-09-14 08:53 | PN ---
Progress Note (short form) - Note Progress Note: SURGERY 24yo F s/p lap jose francisco, POD 1. Pt seen and examined at bedside. Pt states that she is doing well, complains of mild abd pain. Denies n/v, fever, chills, cp, sob. Pt states that she wants to go home. Last Vital Signs Temp Pulse Resp BP Pulse Ox 98.5 F 52 L 18 116/57 L 98 09/14/19 06:00 09/14/19 06:00 09/14/19 06:00 09/14/19 06:00 09/13/19 21:00 CBC, BMP 09/13/19 06:43 09/13/19 06:43 PE; Gen; A&O x3 Resp: breathing comfortably Abd: soft, nondistended, nontender, incisions clean with no erythema or discharge Ext: no edema Problem List - Problems (1) S/P laparoscopic cholecystectomy Assessment/Plan: Plan -pt appears to be doing well, cleared for discharge from surgery standpoint. -pt should follow up with Dr. Black in the office in 1-2 weeks call for appt. Code(s): Z90.49 - ACQUIRED ABSENCE OF OTHER SPECIFIED PARTS OF DIGESTIVE TRACT
[2019-09-14 09:11] LABS: BASO % 0.4 % (0-2.0); EOS % 0.6 % (0-4.5); HEMATOCRIT 35.4 % (32.4-45.2); HEMOGLOBIN 11.9 GM/dL (10.7-15.3); LYMPH % 22.5 % (8-40); MCH 29.9 pg (25.7-33.7); MCHC 33.7 g/dl (32.0-36.0); MEAN CELL VOLUME 88.8 fl (80-96); NEUT % 67.5 % (42.8-82.8); PLATELET COUNT 257 K/MM3 (134-434); RBC 3.98 M/mm3 (3.60-5.2); RDW 13.3 % (11.6-15.6); WHITE BLOOD COUNT 5.9 K/mm3 (4.0-10.0)
[2019-09-14] MEDS ORDERED: PANTOPRAZOLE SODIUM 40 MG VIAL IVPUSH SCH (10:00)
[2019-09-14 10:29] LABS: ALBUMIN 3.3 g/dl (3.4-5.0); BILIRUBIN,TOTAL 2.3 mg/dL (0.2-1); BLOOD UREA NITROGEN 8.1 mg/dL (7-18); CALCIUM 8.9 mg/dL (8.5-10.1); CREATININE 0.8 mg/dL (0.55-1.3); POTASSIUM 4.2 mmol/L (3.5-5.1); TOT PROT 6.6 g/dl (6.4-8.2)
--- NOTE | 2019-09-14 11:36 | DS ---
Physical Exam: SUBJECTIVE: Patient seen and examined. no events overnight. says her pain significantly improved after surgery. some soreness. OBJECTIVE: Vital Signs Period Temp Pulse Resp BP Sys/Medrano Pulse Ox Last 24 Hr 98.1 F-98.7 F 52-97 13-22 115-143/57-95 96-100 PHYSICAL EXAM GENERAL: a/o x 3, in NAD HEAD: Normal with no signs of trauma. EYES: PERRL, conjunctiva clear ENT: oropharynx clear without exudates, moist mucous membranes. NECK: supple. LUNGS: Breath sounds equal, clear to auscultation bilaterally HEART: Regular rate and rhythm, S1, S2 without murmur, rub or gallop. ABDOMEN: Soft, no tenderness, says just soreness, +BS EXTREMITIES: 2+ pulses, warm, well-perfused, no edema. LABS Laboratory Results - last 24 hr 09/12/19 09/14/19 09/14/19 17:15 08:25 08:25 WBC 5.9 RBC 3.98 Hgb 11.9 Hct 35.4 MCV 88.8 MCH 29.9 MCHC 33.7 RDW 13.3 Plt Count 257 MPV 9.0 Absolute Neuts (auto) 4.0 Neutrophils % 67.5 D Lymphocytes % 22.5 D Monocytes % 9.0 Eosinophils % 0.6 D Basophils % 0.4 Nucleated RBC % 0 Sodium 137 Potassium 4.2 Chloride 105 Carbon Dioxide 23 Anion Gap 9 BUN 8.1 Creatinine 0.8 Est GFR (CKD-EPI)AfAm 117.93 Est GFR (CKD-EPI)NonAf 101.75 Random Glucose 108 H Calcium 8.9 Total Bilirubin 2.3 H AST 1242 H ALT 1268 H Alkaline Phosphatase 220 H Total Protein 6.6 Albumin 3.3 L Hep A IgM Ab Confirm Negative Hep Bs Antigen Negative Hep B Core IgM Ab Negative Hepatitis C Ab (EIA) <0.1 HOSPITAL COURSE: Date of Admission:09/12/19 24 yo Obese F with no significant pmh, 3 months (full term, no complications, ), presenting to the ED for sudden 10/10, epigastric abdominal pain that started at 1am last night that radiated to her back. #Acute cholecystitis -s/p Lap choly POD #1 -MRCP suboptimal study but consistent with cholecystitis and not choledocholithiasis. -Surgery on board: Dr. Black -pain control with oxycodone #transaminitis - - -GI on board -fu am labs #FEN -iv fluids -monitor -regular diet #dvt ppx -eab -lovenox sq Date of Discharge: 09/14/19 Minutes to complete discharge: 35 Discharge Summary Problems reviewed: Yes Reason For Visit: ABD PAIN Current Active Problems Abdominal pain (Acute) S/P laparoscopic cholecystectomy (Acute) Condition: Good - Instructions Diet, Activity, Other Instructions: You were admitted because of an inflammation of your gallbladder. Your gallbladder was removed. Follow up with your primary care doctor within 1 week after discharge. Discharge Instructions Dear RADHA DUMONT, Post Operative Instructions Physical activity Resume your normal everyday activity as tolerated no heavy lifting or exercise until seen by your surgeon. You may walk unlimited amounts of and climb stairs. You may resume driving the car when you feel safe and comfortable behind the wheel and are no longer taking narcotics. Wound care If you have a bandage, leave it on, and keep dry for 48. You may shower 2 days after surgery but do not submerge the incisions. Do not apply lotion or ointments to incisions. If there are tapes present on the skin, they can get wet. Diet There are no dietary restrictions. Eat healthy, high-fiber foods. Drink 6 to 8 glasses of liquid each day. This will assist in keeping your bowels are regular. Pain management You may take Tylenol or acetaminophen or Ibuprofen (for example, Motrin, Advil etc.) Any pain prescription medication ordered should be taken as prescribed for moderate to severe pain. Call Dr. Black for any of the following: Severe pain not relieved by medication Fever of 101 or higher Excessive bleeding or drainage on dressing Inability to urinate If you experience any chest pain or shortness of breath please seek emergency treatment immediately. Call the office to confirm your post op appointment. Referrals: Santos Black MD [Staff Physician] - 1 Week Disposition: HOME - Home Medications Comprehensive Discharge Medication List: Ambulatory Orders Nitrofurantoin Monohyd/M-Cryst [Macrobid -] 100 mg PO BID #14 capsule 09/18/15 Ondansetron HCl [Zofran] 4 mg PO BID PRN #8 tablet 09/18/15 Oxycodone HCl/Acetaminophen [Percocet 5-325 mg Tablet] 1 tab PO Q4H PRN #8 tablet MDD 6 09/13/19 - Discharge Referral Referred to [facility] No ATTENDING PHYSICIAN STATEMENT I saw and evaluated the patient. I reviewed the resident's note and discussed the case with the resident. I agree with the resident's findings and plan as documented. SUBJECTIVE: OBJECTIVE: ASSESSMENT AND PLAN:
[2019-09-14] MEDS: ENOXAPARIN NA (PORCINE) 40 MG/0.4 ML DISP.SYRIN SQ SCH (12:56)
[2019-09-14 14:07] LABS: ALBUMIN 3.2 g/dl (3.4-5.0); BILIRUBIN,TOTAL 1.8 mg/dL (0.2-1); BLOOD UREA NITROGEN 8.9 mg/dL (7-18); CALCIUM 8.7 mg/dL (8.5-10.1); CREATININE 0.8 mg/dL (0.55-1.3); POTASSIUM 4.1 mmol/L (3.5-5.1); TOT PROT 6.5 g/dl (6.4-8.2)
--- NOTE | 2019-09-14 14:23 | PN ---
Teaching Attending Note Name of Resident: Artis Meneses ATTENDING PHYSICIAN STATEMENT I saw and evaluated the patient. I reviewed the resident's note and discussed the case with the resident. I agree with the resident's findings and plan as documented. SUBJECTIVE: seen and examined at bedside. no BM, passing flatus, pain suprapubic, nausea when eating. afebrile OBJECTIVE: Vital Signs - 24 hr 09/13/19 09/13/19 09/13/19 14:40 18:00 21:00 Temperature 98.5 F 98.7 F Pulse Rate 76 91 H Respiratory 18 19 Rate Blood Pressure 132/76 139/68 O2 Sat by Pulse 98 98 Oximetry (%) 09/13/19 09/14/19 09/14/19 22:00 06:00 09:03 Temperature 98.6 F 98.5 F Pulse Rate 75 52 L 61 Respiratory 19 18 16 Rate Blood Pressure 116/71 116/57 L 123/69 O2 Sat by Pulse Oximetry (%) PE: GENERAL: NAD LUNGS: CTA b/l, unlabored, no wrr HEART: RRR, s1s2, rrr ABDOMEN: Soft, tenderness to palpation incision sites, no guarding or rebound EXTREMITIES: no edema Current Medications Enoxaparin Sodium (Lovenox -) 40 mg SQ DAILY [facility] Last Admin: 09/14/19 12:56 Dose: 40 mg Potassium Chloride/Dextrose/Sod Cl (D5-1/2ns+20 Meq Kcl -) 20 meq in 1,000 mls @ 100 mls/hr IV [facility]IR [facility] Last Admin: 09/14/19 11:13 Dose: Not Given Ibuprofen (Caldolor Injection -) 800 mg IVPB Q6H PRN PRN Reason: FEVER Morphine Sulfate (Morphine Sulfate) 8 mg IVPB Q3H PRN PRN Reason: PAIN LEVEL 7 - 10 Last Admin: 09/14/19 04:16 Dose: 8 mg Oxycodone HCl (Roxicodone -) 7.5 mg PO Q4H PRN PRN Reason: PAIN LEVEL 4 - 6 Last Admin: 09/14/19 13:11 Dose: 7.5 mg Pantoprazole Sodium (Protonix Iv) 40 mg IVPUSH DAILY [facility] Last Admin: 09/14/19 12:56 Dose: 40 mg Laboratory Results - last 24 hr 09/12/19 09/14/19 09/14/19 17:15 08:25 08:25 WBC 5.9 RBC 3.98 Hgb 11.9 Hct 35.4 MCV 88.8 MCH 29.9 MCHC 33.7 RDW 13.3 Plt Count 257 MPV 9.0 Absolute Neuts (auto) 4.0 Neutrophils % 67.5 D Lymphocytes % 22.5 D Monocytes % 9.0 Eosinophils % 0.6 D Basophils % 0.4 Nucleated RBC % 0 Sodium 137 Potassium 4.2 Chloride 105 Carbon Dioxide 23 Anion Gap 9 BUN 8.1 Creatinine 0.8 Est GFR (CKD-EPI)AfAm 117.93 Est GFR (CKD-EPI)NonAf 101.75 Random Glucose 108 H Calcium 8.9 Total Bilirubin 2.3 H AST 1242 H ALT 1268 H Alkaline Phosphatase 220 H Total Protein 6.6 Albumin 3.3 L Hep A IgM Ab Confirm Negative Hep Bs Antigen Negative Hep B Core IgM Ab Negative Hepatitis C Ab (EIA) <0.1 09/14/19 12:19 WBC RBC Hgb Hct MCV MCH MCHC RDW Plt Count MPV Absolute Neuts (auto) Neutrophils % Lymphocytes % Monocytes % Eosinophils % Basophils % Nucleated RBC % Sodium 138 Potassium 4.1 Chloride 105 Carbon Dioxide 26 Anion Gap 7 L BUN 8.9 Creatinine 0.8 Est GFR (CKD-EPI)AfAm 117.93 Est GFR (CKD-EPI)NonAf 101.75 Random Glucose 108 H Calcium 8.7 Total Bilirubin 1.8 H AST 1184 H ALT 1334 H Alkaline Phosphatase 219 H Total Protein 6.5 Albumin 3.2 L Hep A IgM Ab Confirm Hep Bs Antigen Hep B Core IgM Ab Hepatitis C Ab (EIA) ASSESSMENT AND PLAN: 24 y/o obese female with no significant pmhx, 3 months (full term, no complications, ), presenting to the ED for sudden 10/10, epigastric abdominal pain that radiated to her back. 1) Acute cholecystitis s/p lap jose francisco- POD # 1 -LFTs spiked, possible dislodged stone in CBD vs. reactive. pateint afebrile, mild pain -discuss with GI and surgery -monitor lfts -pain control -tolerating diet
--- NOTE | 2019-09-14 14:26 | PN ---
Physical Exam: SUBJECTIVE: Patient seen and examined. no events overnight. says her pain significantly improved after surgery. some soreness. OBJECTIVE: Vital Signs Period Temp Pulse Resp BP Sys/Medrano Pulse Ox Last 24 Hr 98.5 F-98.7 F 52-91 16-19 116-139/57-76 98-98 GENERAL: a/o x 3, in NAD HEAD: Normal with no signs of trauma. EYES: PERRL, conjunctiva clear ENT: oropharynx clear without exudates, moist mucous membranes. NECK: supple. LUNGS: Breath sounds equal, clear to auscultation bilaterally HEART: Regular rate and rhythm, S1, S2 without murmur, rub or gallop. ABDOMEN: Soft, no tenderness, says just soreness, +BS EXTREMITIES: 2+ pulses, warm, well-perfused, no edema. Laboratory Results - last 24 hr 09/12/19 09/14/19 09/14/19 17:15 08:25 08:25 WBC 5.9 RBC 3.98 Hgb 11.9 Hct 35.4 MCV 88.8 MCH 29.9 MCHC 33.7 RDW 13.3 Plt Count 257 MPV 9.0 Absolute Neuts (auto) 4.0 Neutrophils % 67.5 D Lymphocytes % 22.5 D Monocytes % 9.0 Eosinophils % 0.6 D Basophils % 0.4 Nucleated RBC % 0 Sodium 137 Potassium 4.2 Chloride 105 Carbon Dioxide 23 Anion Gap 9 BUN 8.1 Creatinine 0.8 Est GFR (CKD-EPI)AfAm 117.93 Est GFR (CKD-EPI)NonAf 101.75 Random Glucose 108 H Calcium 8.9 Total Bilirubin 2.3 H AST 1242 H ALT 1268 H Alkaline Phosphatase 220 H Total Protein 6.6 Albumin 3.3 L Hep A IgM Ab Confirm Negative Hep Bs Antigen Negative Hep B Core IgM Ab Negative Hepatitis C Ab (EIA) <0.1 09/14/19 12:19 WBC RBC Hgb Hct MCV MCH MCHC RDW Plt Count MPV Absolute Neuts (auto) Neutrophils % Lymphocytes % Monocytes % Eosinophils % Basophils % Nucleated RBC % Sodium 138 Potassium 4.1 Chloride 105 Carbon Dioxide 26 Anion Gap 7 L BUN 8.9 Creatinine 0.8 Est GFR (CKD-EPI)AfAm 117.93 Est GFR (CKD-EPI)NonAf 101.75 Random Glucose 108 H Calcium 8.7 Total Bilirubin 1.8 H AST 1184 H ALT 1334 H Alkaline Phosphatase 219 H Total Protein 6.5 Albumin 3.2 L Hep A IgM Ab Confirm Hep Bs Antigen Hep B Core IgM Ab Hepatitis C Ab (EIA) Active Medications Generic Name Dose Route Start Last Admin Trade Name Freq PRN Reason Stop Dose Admin Enoxaparin Sodium 40 mg 09/14/19 10:00 09/14/19 12:56 Lovenox - SQ 40 mg DAILY LONNY Administration Potassium Chloride/Dextrose/Sod Cl 20 meq in 1,000 mls @ 100 mls/hr 09/13/19 11:00 09/14/19 11:13 D5-1/2ns+20 Meq Kcl - IV Not Given ASDIR LONNY Ibuprofen 800 mg 09/13/19 10:54 Caldolor Injection - IVPB Q6H PRN FEVER Morphine Sulfate 8 mg 09/13/19 15:26 09/14/19 04:16 Morphine Sulfate IVPB 8 mg Q3H PRN Administration PAIN LEVEL 7 - 10 Oxycodone HCl 7.5 mg 09/13/19 10:52 09/14/19 13:11 Roxicodone - PO 7.5 mg Q4H PRN Administration PAIN LEVEL 4 - 6 Pantoprazole Sodium 40 mg 09/14/19 10:00 09/14/19 12:56 Protonix Iv IVPUSH 40 mg DAILY LONNY Administration ASSESSMENT/PLAN: 24 yo Obese F with no significant pmh, 3 months (full term, no complications, ), presenting to the ED for sudden 10/10, epigastric abdominal pain that started at 1am last night that radiated to her back. #Acute cholecystitis -s/p Lap choly POD #1 -pre-op MRCP suboptimal study but consistent with cholecystitis and not choledocholithiasis. -Surgery on board: Dr. Black -pain control with oxycodone #transaminitis -LFTs increased this AM. likely reactive -trend -GI on board -fu am labs #FEN -iv fluids -monitor -regular diet #dvt ppx -eab -lovenox sq anticipate dc in the AM Visit type - Emergency Visit Emergency Visit: Yes ED Registration Date: 09/12/19 Care time: The patient presented to the Emergency Department on the above date and was hospitalized for further evaluation of their emergent condition. - New Patient This patient is new to me today: Yes Date on this admission: 09/14/19 - Critical Care Critical Care patient: No ATTENDING PHYSICIAN STATEMENT I saw and evaluated the patient. I reviewed the resident's note and discussed the case with the resident. I agree with the resident's findings and plan as documented. SUBJECTIVE: OBJECTIVE: ASSESSMENT AND PLAN:
--- NOTE | 2019-09-14 15:25 | PN.GI ---
GI Progress Note Subjective: Recalled by medicine team to evaluate for elevated LFTs with increase post cholecystectomy. Pt seen/examined, sitting up, reports feeling better overall, mostly discomfort at surgical sites, denies n/v, no flatus or bm yet. No prior h/o liver disease. - Objective Vital Signs: Vital Signs Temperature 98.5 F 09/14/19 06:00 Pulse Rate 61 09/14/19 09:03 Respiratory Rate 16 09/14/19 09:03 Blood Pressure 123/69 09/14/19 09:03 O2 Sat by Pulse Oximetry (%) 98 09/13/19 21:00 Constitutional: Well Nourished, No Distress, Calm Cardiovascular: Yes: WNL, Regular Rate and Rhythm Respiratory: Yes: WNL, Regular, CTA Bilaterally ...Palpate: Yes: Other (Abd soft, mildly tender mostly at RUQ and incisional sites, non distended, no rebound, guarding or rigidity) Labs: CBC, BMP 09/14/19 08:25 09/14/19 12:19 INR, PTT INR 0.92 (0.83-1.09) 09/12/19 02:37 Problem List - Problems (1) Elevated LFTs Assessment/Plan: 24yo female presenting with abdominal pain with US and MRI imaging suggestive of cholecystitis s/p lap cholecystectomy pod # 1 with increased LFTs predominantly hepatocellular dysfunction. Clinically improving. Findings likely reactive/secondary vs possible ischemic component in setting of cholecystectomy/ post op, less likely obstructive or remnant stone. Acute hep panel negative. -Continue supportive measures, IVF -Diet as tolerated -Continue to closely monitor LFT trend (repeat in am) -Check HBsAb to assess immunity status -Avoid nonessential hepatotoxic medications -If persistent elevation or rising bili/alk phos may need to repeat imaging to assess for remnant stone Discussed with medicine team Code(s): R94.5 - ABNORMAL RESULTS OF LIVER FUNCTION STUDIES
[2019-09-15] MEDS: oxyCODONE HCL 5 MG TABLET PO PRN ×2 (07:08→16:36)
[2019-09-15 08:24] LABS: BASO % 0.6 % (0-2.0); EOS % 4.5 % (0-4.5); HEMATOCRIT 37.4 % (32.4-45.2); HEMOGLOBIN 12.5 GM/dL (10.7-15.3); LYMPH % 39.2 % (8-40); MCH 29.9 pg (25.7-33.7); MCHC 33.3 g/dl (32.0-36.0); MEAN CELL VOLUME 89.7 fl (80-96); MONO % 7.5 % (3.8-10.2); NEUT % 48.2 % (42.8-82.8); PLATELET COUNT 214 K/MM3 (134-434); RBC 4.16 M/mm3 (3.60-5.2); RDW 13.4 % (11.6-15.6); WHITE BLOOD COUNT 4.9 K/mm3 (4.0-10.0)
[2019-09-15 09:05] LABS: ALBUMIN 3.5 g/dl (3.4-5.0); BILIRUBIN,TOTAL 2.1 mg/dL (0.2-1); CALCIUM 9.5 mg/dL (8.5-10.1); CREATININE 0.9 mg/dL (0.55-1.3); POTASSIUM 3.8 mmol/L (3.5-5.1); TOT PROT 7.2 g/dl (6.4-8.2)
[2019-09-15] MEDS: ENOXAPARIN NA (PORCINE) 40 MG/0.4 ML DISP.SYRIN SQ SCH (10:36)
[2019-09-15] MEDS: PANTOPRAZOLE 40 MG TABLET PO SCH (10:36)
--- NOTE | 2019-09-15 11:06 | PN ---
Physical Exam: SUBJECTIVE: Patient seen and examined. complains of diffuse abdominal pain. no fevers, chills, night sweats, nausea, or vomiting. OBJECTIVE: Vital Signs Period Temp Pulse Resp BP Sys/Medrano Pulse Ox Last 24 Hr 97.4 F-98.8 F 60-73 16-18 97-129/54-67 97 GENERAL: a/o x 3, in NAD HEAD: Normal with no signs of trauma. EYES: PERRL, conjunctiva clear ENT: oropharynx clear without exudates, moist mucous membranes. NECK: supple. LUNGS: Breath sounds equal, clear to auscultation bilaterally HEART: Regular rate and rhythm, S1, S2 without murmur, rub or gallop. ABDOMEN: obese, soft, diffuse tenderness to palpation. +BS EXTREMITIES: 2+ pulses, warm, well-perfused, no edema. Laboratory Results - last 24 hr 09/14/19 09/15/19 09/15/19 12:19 07:45 07:45 WBC 4.9 RBC 4.16 Hgb 12.5 Hct 37.4 MCV 89.7 MCH 29.9 MCHC 33.3 RDW 13.4 Plt Count 214 MPV 9.0 Absolute Neuts (auto) 2.4 Neutrophils % 48.2 D Lymphocytes % 39.2 D Monocytes % 7.5 Eosinophils % 4.5 D Basophils % 0.6 Nucleated RBC % 0 Sodium 138 135 L Potassium 4.1 3.8 Chloride 105 104 Carbon Dioxide 26 25 Anion Gap 7 L 7 L BUN 8.9 10.0 Creatinine 0.8 0.9 Est GFR (CKD-EPI)AfAm 117.93 102.28 Est GFR (CKD-EPI)NonAf 101.75 88.25 Random Glucose 108 H 90 Calcium 8.7 9.5 Total Bilirubin 1.8 H 2.1 H AST 1184 H 879 H ALT 1334 H 1505 H Alkaline Phosphatase 219 H 261 H Total Protein 6.5 7.2 Albumin 3.2 L 3.5 Active Medications Generic Name Dose Route Start Last Admin Trade Name Freq PRN Reason Stop Dose Admin Enoxaparin Sodium 40 mg 09/14/19 10:00 09/15/19 10:36 Lovenox - SQ 40 mg DAILY LONNY Administration Ibuprofen 800 mg 09/13/19 10:54 Caldolor Injection - IVPB Q6H PRN FEVER Oxycodone HCl 5 mg 09/14/19 14:28 09/15/19 07:08 Roxicodone - PO 5 mg Q4H PRN Administration PAIN LEVEL 4 - 6 Pantoprazole Sodium 40 mg 09/15/19 10:00 09/15/19 10:36 Protonix - PO 40 mg DAILY LONNY Administration ASSESSMENT/PLAN: 24 yo Obese F with no significant pmh, 3 months (full term, no complications, ), presenting to the ED for sudden 05/19, epigastric abdominal pain that started at 1am last night that radiated to her back. #Transaminitis -LFTs increased this AM. r/o obstruction -ALk phos also elevated today -FU abd U/S -will consider MRCP. but will discuss with GI first. -trend -FU GI reccs #Acute cholecystitis -s/p Lap jose francisco POD #2 -pre-op MRCP suboptimal study but consistent with cholecystitis and not choledocholithiasis. -Surgery on board: Dr. Black -pain control with oxycodone #FEN -no iv fluids. patient eating -monitor -regular diet #dvt ppx -eab -lovenox sq Visit type - Emergency Visit Emergency Visit: Yes ED Registration Date: 09/12/19 Care time: The patient presented to the Emergency Department on the above date and was hospitalized for further evaluation of their emergent condition. - New Patient This patient is new to me today: Yes Date on this admission: 09/15/19 - Critical Care Critical Care patient: No ATTENDING PHYSICIAN STATEMENT I saw and evaluated the patient. I reviewed the resident's note and discussed the case with the resident. I agree with the resident's findings and plan as documented. SUBJECTIVE: OBJECTIVE: ASSESSMENT AND PLAN:
--- NOTE | 2019-09-15 14:41 | PN ---
Teaching Attending Note Name of Resident: Artis Meneses ATTENDING PHYSICIAN STATEMENT I saw and evaluated the patient. I reviewed the resident's note and discussed the case with the resident. I agree with the resident's findings and plan as documented. SUBJECTIVE: Seen and examined at bedside, patient endorses RUQ pain and tenderness, nausea, no vomiting. Wants to go home. OBJECTIVE: Vital Signs - 24 hr 09/14/19 09/14/19 09/15/19 17:00 21:00 01:00 Temperature 97.4 F L 98.8 F Pulse Rate 63 60 67 Respiratory 16 16 16 Rate Blood Pressure 106/63 112/57 L 97/54 L O2 Sat by Pulse 97 Oximetry (%) 09/15/19 05:00 Temperature 98.2 F Pulse Rate 73 Respiratory 18 Rate Blood Pressure 129/63 O2 Sat by Pulse Oximetry (%) PE: GENERAL: NAD LUNGS: CTA b/l, unlabored, no wrr HEART: RRR, s1s2, rrr ABDOMEN: Soft, distended, tenderness to palpation RUQ, no guarding or rebound EXTREMITIES: no edema Current Medications Enoxaparin Sodium (Lovenox -) 40 mg SQ DAILY [facility] Last Admin: 09/15/19 10:36 Dose: 40 mg Ibuprofen (Caldolor Injection -) 800 mg IVPB Q6H PRN PRN Reason: FEVER Oxycodone HCl (Roxicodone -) 5 mg PO Q4H PRN PRN Reason: PAIN LEVEL 4 - 6 Last Admin: 09/15/19 07:08 Dose: 5 mg Pantoprazole Sodium (Protonix -) 40 mg PO DAILY [facility] Last Admin: 09/15/19 10:36 Dose: 40 mg Laboratory Results - last 24 hr 09/15/19 09/15/19 07:45 07:45 WBC 4.9 RBC 4.16 Hgb 12.5 Hct 37.4 MCV 89.7 MCH 29.9 MCHC 33.3 RDW 13.4 Plt Count 214 MPV 9.0 Absolute Neuts (auto) 2.4 Neutrophils % 48.2 D Lymphocytes % 39.2 D Monocytes % 7.5 Eosinophils % 4.5 D Basophils % 0.6 Nucleated RBC % 0 Sodium 135 L Potassium 3.8 Chloride 104 Carbon Dioxide 25 Anion Gap 7 L BUN 10.0 Creatinine 0.9 Est GFR (CKD-EPI)AfAm 102.28 Est GFR (CKD-EPI)NonAf 88.25 Random Glucose 90 Calcium 9.5 Total Bilirubin 2.1 H AST 879 H ALT 1505 H Alkaline Phosphatase 261 H Total Protein 7.2 Albumin 3.5 ASSESSMENT AND PLAN: 24 y/o obese female with no significant PMHx, 3 months (full term, no complications, ), presenting to the ED for sudden 10/10, epigastric abdominal pain that radiated to her back. 1) Acute cholecystitis s/p lap jose francisco- POD # 2 -AST down to 879, ALT up to 1500s with tbili of 2 -she remains afebrile, although still with tenderness, pain, would do an mrcp to assess for possible dislodged stone -abdominal u/s ordered -hep panel neg, hep b ab pending -surgery and GI aware -monitor lfts in AM -pain control -tolerating diet
--- NOTE | 2019-09-15 16:10 | PATH ---
Surgical Pathology Report Patient Name: RADHA DUMONT Med. Rec. #: [id number] /Age/Gender: 1995 (Age: 24) / F Account: [id number] Location: [address] [place] [address]/[facility] Taken: 09/13/2019 Received: Reported: 09/15/2019 Physicians: Atilio Dawkins Specimen(s) Received GALLBLADDER Clinical History Abdominal pain, cholecystitis Final Diagnosis GALLBLADDER, LAPAROSCOPIC CHOLECYSTECTOMY: CHRONIC CHOLECYSTITIS, CHOLESTEROLOSIS AND CHOLELITHIASIS. Electronically Signed Criss Natarajan M.D. Gross Description Received in formalin, labeled "gallbladder," is an 8.1 x 3.0 x 2.1 cm. gallbladder with a 0.2 cm. in length portion of cystic duct attached. The outer surface is barron-molina with a focal defect and varies from smooth to shaggy. The lumen contains green, tenacious bile as well as abundant yellow, spherical, bosselated choleliths ranging from 0.1-0.5 cm in greatest dimension. The mucosa is dark green and velvety with gold cholesterol stippling. The wall of the gallbladder averages 0.2 cm. in thickness. Vault Keeper sections are submitted in one cassette. 09/14/2019 [facility]09/14/2019
--- NOTE | 2019-09-15 17:48 | PN.GI ---
GI Progress Note Subjective: coverage for Dr Hernandez 24yo female presenting with abdominal pain with US and MRI imaging suggestive of cholecystitis s/p lap cholecystectomy pod # 1 with increased LFTs predominantly hepatocellular dysfunction. Clinically improving. Findings likely reactive/secondary vs possible ischemic component in setting of cholecystectomy/ post op, less likely obstructive or remnant stone. Acute hep panel negative. LFTS downward trend, still moderate to severe epigastric pain, poor po intake - Objective Vital Signs: Vital Signs Temperature 98.6 F 09/15/19 13:00 Pulse Rate 74 09/15/19 13:00 Respiratory Rate 18 09/15/19 13:00 Blood Pressure 118/75 09/15/19 13:00 O2 Sat by Pulse Oximetry (%) 97 09/15/19 09:00 Constitutional: Well Nourished Eyes: Yes: Conjunctiva Clear HENT: Yes: Atraumatic Neck: Yes: Supple Cardiovascular: Yes: Regular Rate and Rhythm Respiratory: Yes: CTA Bilaterally ...Palpate: Yes: Soft, Tenderness, Epigastium. No: Firm/Rigid, Guarding, Hepatomegaly, Mass, Pulsatile Mass, Splenomegaly Labs: CBC, BMP 09/15/19 07:45 09/15/19 07:45 INR, PTT INR 0.92 (0.83-1.09) 09/12/19 02:37 Hepatic Panel Total Bilirubin 2.1 mg/dL (0.2-1) H 09/15/19 07:45 AST 879 U/L (15-37) H 09/15/19 07:45 ALT 1505 U/L (13-61) H 09/15/19 07:45 Alkaline Phosphatase 261 U/L (45-117) H 09/15/19 07:45 Albumin 3.5 g/dl (3.4-5.0) 09/15/19 07:45 Problem List - Problems (1) S/P laparoscopic cholecystectomy Assessment/Plan: abdominal ultrasound no collection Code(s): Z90.49 - ACQUIRED ABSENCE OF OTHER SPECIFIED PARTS OF DIGESTIVE TRACT (2) Abdominal pain Assessment/Plan: moderate to severe R> consider CT if abdominal pain is persistent Code(s): R10.9 - UNSPECIFIED ABDOMINAL PAIN (3) Elevated LFTs Assessment/Plan: most likely secondary to ischemia and previous surgery R> IV hydration Code(s): R94.5 - ABNORMAL RESULTS OF LIVER FUNCTION STUDIES
[2019-09-15] MEDS: DEXTROSE 5%-NORMAL SALINE 1,000 ML IV SCH (20:08)
[2019-09-15] MEDS ORDERED: MORPHINE SULFATE 2 MG/ML VIAL IVPUSH PRN (20:27)
[2019-09-16] MEDS: DEXTROSE 5%-NORMAL SALINE 1,000 ML IV SCH ×3 (05:01→18:00)
[2019-09-16 08:30] LABS: BASO % 0.5 % (0-2.0); EOS % 5.6 % (0-4.5); HEMOGLOBIN 14.1 GM/dL (10.7-15.3); LYMPH % 33.4 % (8-40); MCH 30.4 pg (25.7-33.7); MCHC 33.6 g/dl (32.0-36.0); MEAN CELL VOLUME 90.6 fl (80-96); MEAN PLT VOLUME 9.1 fl (7.5-11.1); MONO % 8.6 % (3.8-10.2); NEUT % 51.9 % (42.8-82.8); PLATELET COUNT 262 K/MM3 (134-434); RBC 4.64 M/mm3 (3.60-5.2); RDW 13.8 % (11.6-15.6)
[2019-09-16 09:04] LABS: ALBUMIN 3.4 g/dl (3.4-5.0); BILIRUBIN,TOTAL 2.9 mg/dL (0.2-1); BLOOD UREA NITROGEN 6.4 mg/dL (7-18); CALCIUM 9.3 mg/dL (8.5-10.1); CREATININE 0.8 mg/dL (0.55-1.3); POTASSIUM 4.1 mmol/L (3.5-5.1); TOT PROT 7.1 g/dl (6.4-8.2)
[2019-09-16] MEDS ORDERED: ONDANSETRON 4 MG/2 ML VIAL IVPUSH PRN (10:03)
[2019-09-16] MEDS ORDERED: DOCUSATE SODIUM 100 MG CAPSULE (FP) PO PRN (10:31)
[2019-09-16] MEDS ORDERED: MINERAL OIL ENEMA 133 ML ENEMA PR ONE (10:32)
[2019-09-16] MEDS: PANTOPRAZOLE 40 MG TABLET PO SCH (10:32)
[2019-09-16] MEDS: ENOXAPARIN NA (PORCINE) 40 MG/0.4 ML DISP.SYRIN SQ SCH (10:32)
[2019-09-16] MEDS: POLYETHYLENE GLYCOL 3350 119 GM BTL PO SCH ×2 (11:42→21:05)
[2019-09-16] MEDS: SENNOSIDES 8.6MG TABLET (FP) PO SCH ×2 (11:42→21:02)
--- NOTE | 2019-09-16 11:52 | PN ---
Physical Exam: SUBJECTIVE: Patient seen and examined. Complains of worsening pain, nausea and had a few episodes of vomiting. ALk phos and t. bili continuing to elevate. OBJECTIVE: Vital Signs Period Temp Pulse Resp BP Sys/Medrano Pulse Ox Last 24 Hr 97.9 F-98.6 F 51-80 18-18 117-150/63-75 GENERAL: a/o x 3, in NAD HEAD: Normal with no signs of trauma. EYES: PERRL, conjunctiva clear ENT: oropharynx clear without exudates, moist mucous membranes. NECK: supple. LUNGS: Breath sounds equal, clear to auscultation bilaterally HEART: Regular rate and rhythm, S1, S2 without murmur, rub or gallop. ABDOMEN: obese, no distention, diffuse tenderness to palpation EXTREMITIES: 2+ pulses, warm, well-perfused, no edema. Laboratory Results - last 24 hr 09/15/19 09/16/19 09/16/19 07:45 07:34 07:34 WBC 6.0 RBC 4.64 Hgb 14.1 Hct 42.0 MCV 90.6 MCH 30.4 MCHC 33.6 RDW 13.8 Plt Count 262 D MPV 9.1 Absolute Neuts (auto) 3.1 Neutrophils % 51.9 Lymphocytes % 33.4 Monocytes % 8.6 Eosinophils % 5.6 H Basophils % 0.5 Nucleated RBC % 0 Sodium 138 Potassium 4.1 Chloride 107 Carbon Dioxide 24 Anion Gap 7 L BUN 6.4 L Creatinine 0.8 Est GFR (CKD-EPI)AfAm 117.93 Est GFR (CKD-EPI)NonAf 101.75 Random Glucose 99 Calcium 9.3 Total Bilirubin 2.9 H AST 477 H ALT 1162 H Alkaline Phosphatase 293 H Total Protein 7.1 Albumin 3.4 Hep Bs Antibody Non reactive Active Medications Generic Name Dose Route Start Last Admin Trade Name Freq PRN Reason Stop Dose Admin Docusate Sodium 100 mg 09/16/19 10:31 Colace - PO BID PRN CONSTIPATION Enoxaparin Sodium 40 mg 09/14/19 10:00 09/16/19 10:32 Lovenox - SQ 40 mg DAILY LONNY Administration Dextrose/Sodium Chloride 1,000 mls @ 125 mls/hr 09/15/19 18:00 09/16/19 05:01 D5-Ns - IV 09/18/19 01:59 125 mls/hr ASDIR LONNY Administration Morphine Sulfate 2 mg 09/15/19 20:27 09/15/19 20:38 Morphine Sulfate IVPUSH 2 mg Q6H PRN Administration PAIN LEVEL 6-10 Ondansetron HCl 4 mg 09/16/19 10:03 Zofran Injection IVPUSH Q6H PRN NAUSEA Oxycodone HCl 5 mg 09/14/19 14:28 09/15/19 16:36 Roxicodone - PO 5 mg Q4H PRN Administration PAIN LEVEL 4 - 6 Pantoprazole Sodium 40 mg 09/15/19 10:00 09/16/19 10:32 Protonix - PO 40 mg DAILY LONNY Administration Polyethylene Glycol 17 gm 09/16/19 10:45 09/16/19 11:42 Miralax (For Daily Use) - PO 17 gm BID LONNY Administration Senna 1 tab 09/16/19 10:45 09/16/19 11:42 Senna - PO 1 tab BID LONNY Administration ASSESSMENT/PLAN: 24 yo Obese F with no significant pmh, 3 months (full term, no complications, ), presenting to the ED for sudden 05/19, epigastric abdominal pain #Elevated Alk phos/T. bili/Transaminitis -Stat MRCP/?ERCP to rule out pancreatitis leading to edema of the head of the pancreas, GI has concern for retained stone in distal CBD (initial MRCP was unable to visualize distal duct / ampulla), and they also noted they doubt primary liver dysfunction. -trend -FU GI reccs -pain control -iv fluids -npo #Acute cholecystitis -s/p Lap jose francisco POD #3 -pre-op MRCP suboptimal study but consistent with cholecystitis and not choledocholithiasis. -Surgery on board: Dr. Black -pain control with oxycodone #FEN -iv fluids -monitor -npo #dvt ppx -lovenox sq Visit type - Emergency Visit Emergency Visit: Yes ED Registration Date: 09/12/19 Care time: The patient presented to the Emergency Department on the above date and was hospitalized for further evaluation of their emergent condition. - New Patient This patient is new to me today: Yes Date on this admission: 09/16/19 - Critical Care Critical Care patient: No ATTENDING PHYSICIAN STATEMENT I saw and evaluated the patient. I reviewed the resident's note and discussed the case with the resident. I agree with the resident's findings and plan as documented. SUBJECTIVE: OBJECTIVE: ASSESSMENT AND PLAN:
[2019-09-16] MEDS ORDERED: morphine CARPU-JECT 2 MG/1 ML DISP.SYRIN IVPUSH ONE (12:31)
--- NOTE | 2019-09-16 12:34 | PN.GI ---
GI Progress Note Subjective: Complains of mid abdominal pain and vomited this morning (otameal per the patient) Bilirubin and ALP continue to rise - Objective Vital Signs: Vital Signs Temperature 97.9 F 09/16/19 10:00 Pulse Rate 66 09/16/19 10:00 Respiratory Rate 18 09/16/19 10:00 Blood Pressure 150/75 09/16/19 10:00 O2 Sat by Pulse Oximetry (%) 97 09/15/19 09:00 Constitutional: Calm Eyes: No: Sclera Icterus Cardiovascular: Yes: Regular Rate and Rhythm Respiratory: Yes: CTA Bilaterally Gastrointestinal Inspection: Yes: Scars (trochar scars). No: Distention ...Auscultate: Yes: Normoactive Bowel Sounds ...Palpate: Yes: Soft, Tenderness (Marked TTP mid abdomen, not particularly focused at the trochar sites) ...Percussion: No: Tympanitic Edema: No (No LE edema) Neurological: Yes: Alert Labs: CBC, BMP 09/16/19 07:34 09/16/19 07:34 INR, PTT INR 0.92 (0.83-1.09) 09/12/19 02:37 Problem List - Problems (1) Elevated LFTs Assessment/Plan: With associated mid abdominal pain. Giving rising liver chemistries and mid abdominal pain, ? if process such as pancreatitis leading to edema t the head of the pancreas, concern for retained stone in distal CBD (initial MRCP was unable to visualize distal duct / ampulla), doubt primary liver dysfunction. Ordered stat MRCP to reevealuate biliary tract, evaluate for any perihepatic fluid collections and assess the pancreas Ordered Amylase/Lipase Discussed potential need for ERCP with Ms. Nicholson. Discussed potential risks of the procedure like btu not limited to bleeding, perforation requiring surgery to repair, infection, sedation medication effects, pancreatitis, all of which could be potentially life threatening. She has agreed to the procedure if it was felt to be clinically necessary For now: NPO IV hydration Advised primary team's resident to reassess the patient for IV analgesia Repeat type and screen, PT/INR ordered given potential for procedure. Dr. Carbajal covering this evening and the weekend Code(s): R94.5 - ABNORMAL RESULTS OF LIVER FUNCTION STUDIES
[2019-09-16] MEDS ORDERED: MORPHINE SULFATE 2 MG/ML VIAL IVPUSH ONE ×2 (12:45→15:02)
[2019-09-16 13:20] LABS: INR 1.08 (0.83-1.09); PROTHROMBIN TIME (PATIENT) 12.7 SEC (9.7-13.0)
--- NOTE | 2019-09-16 15:21 | PN ---
Teaching Attending Note Name of Resident: Artis Meneses ATTENDING PHYSICIAN STATEMENT I saw and evaluated the patient. I reviewed the resident's note and discussed the case with the resident. I agree with the resident's findings and plan as documented. SUBJECTIVE: Patient seen at bedside, had vomited her breakfast, complaining of pain in Epigastric/RUQ region, needing IV morphine for pain control. OBJECTIVE: PE: GENERAL: tired appearing, mild distress, AAox3 LUNGS: CTA b/l, unlabored, no wrr HEART: RRR, s1s2, rrr ABDOMEN: Soft, ND, mild tenderness to palpation RUQ and epigastrum, no guarding or rebound tenderness, BS+ EXTREMITIES: no edema, no calf tenderness ASSESSMENT AND PLAN: 1) Acute cholecystitis s/p lap jose francisco- POD # 3 in view of worsening transaminitis, abdominal pain, pt. evaluated by GI whom reocmmend the following: Stat MRCP/?ERCP to rule out pancreatitis leading to edema of the head of the pancreas, GI has concern for retained stone in distal CBD (initial MRCP was unable to visualize distal duct / ampulla), and they also noted they doubt primary liver dysfunction. IVF/NPO/IV analgesia with morphine GI following Will DC NSAIDs, address bowel regimen
[2019-09-16] MEDS: MORPHINE SULFATE 2 MG/ML VIAL IVPUSH PRN (20:05)
[2019-09-17] MEDS: MORPHINE SULFATE 2 MG/ML VIAL IVPUSH PRN ×3 (00:14→10:56)
[2019-09-17] MEDS: SODIUM CHLORIDE 1,000 ML IV SCH ×3 (02:25→18:45)
[2019-09-17] MEDS ORDERED: PT OWN MED DRAWER 7, Y5N ONE (08:04)
[2019-09-17] MEDS: ENOXAPARIN NA (PORCINE) 40 MG/0.4 ML DISP.SYRIN SQ SCH (10:06)
[2019-09-17] MEDS: SENNOSIDES 8.6MG TABLET (FP) PO SCH ×2 (10:54→22:18)
[2019-09-17] MEDS: PANTOPRAZOLE 40 MG TABLET PO SCH (10:54)
--- NOTE | 2019-09-17 11:08 | PN ---
Physical Exam: SUBJECTIVE: Patient seen and examined. She had a bowel movement this morning. She continues to complain of epigastric abdominal pain. OBJECTIVE: Vital Signs Period Temp Pulse Resp BP Sys/Medrano Pulse Ox Last 24 Hr 98.0 F-99.4 F 62-84 18-18 108-148/60-93 97 GENERAL: The patient is awake, alert, and fully oriented, in no acute distress. LUNGS: Breath sounds equal, clear to auscultation bilaterally, no wheezes, no crackles, no accessory muscle use. HEART: Regular rate and rhythm, S1, S2 without murmur, rub or gallop. ABDOMEN: Obese, soft, (+) epigastric tenderness, nondistended, normoactive bowel sounds, no guarding, no rebound, no hepatosplenomegaly, no masses. EXTREMITIES: 2+ pulses, warm, well-perfused, no edema. Laboratory Results - last 24 hr 09/16/19 09/16/19 09/16/19 07:34 12:29 13:25 PT with INR 12.70 INR 1.08 Sodium 138 Potassium 4.1 Chloride 107 Carbon Dioxide 24 Anion Gap 7 L BUN 6.4 L Creatinine 0.8 Est GFR (CKD-EPI)AfAm 117.93 Est GFR (CKD-EPI)NonAf 101.75 Random Glucose 99 Calcium 9.3 Total Bilirubin 2.9 H AST 477 H ALT 1162 H Alkaline Phosphatase 293 H Total Protein 7.1 Albumin 3.4 Total Amylase 36 Lipase 144 Blood Type O POSITIVE Antibody Screen Negative Active Medications Generic Name Dose Route Start Last Admin Trade Name Freq PRN Reason Stop Dose Admin Docusate Sodium 100 mg 09/16/19 10:31 09/16/19 20:05 Colace - PO 100 mg BID PRN Administration CONSTIPATION Enoxaparin Sodium 40 mg 09/14/19 10:00 09/17/19 10:06 Lovenox - SQ Not Given DAILY LONNY Dextrose/Sodium Chloride 1,000 mls @ 125 mls/hr 09/15/19 18:00 09/16/19 18:00 D5-Ns - IV 09/18/19 01:59 Not Given ASDIR LONNY Sodium Chloride 1,000 mls @ 83 mls/hr 09/16/19 18:45 09/17/19 02:25 Normal Saline - IV 83 mls/hr ASDIR LONNY Administration Morphine Sulfate 2 mg 09/16/19 18:43 09/17/19 06:29 Morphine Sulfate IVPUSH 2 mg Q4H PRN Administration PAIN LEVEL 6-10 Ondansetron HCl 4 mg 09/16/19 10:03 Zofran Injection IVPUSH Q6H PRN NAUSEA Oxycodone HCl 5 mg 09/14/19 14:28 09/15/19 16:36 Roxicodone - PO 5 mg Q4H PRN Administration PAIN LEVEL 4 - 6 Pantoprazole Sodium 40 mg 09/15/19 10:00 09/16/19 10:32 Protonix - PO 40 mg DAILY LONNY Administration Polyethylene Glycol 17 gm 09/16/19 10:45 09/16/19 21:05 Miralax (For Daily Use) - PO Not Given BID LONNY Senna 1 tab 09/16/19 10:45 09/16/19 21:02 Senna - PO 1 tab BID LONNY Administration ASSESSMENT/PLAN: This is a 24 year old woman with no significant medical history who presented to the ED with epigastric pain. 1. Abdominal pain with hepatic transaminitis, elevated alk phos, hyperbilirubinemia - Repeat MRCP shows no fluid in gallbladder fossa, no biliary or pancreatic duct dilatation, no choledocholithiasis, 7.5 mm CBD - Continue Miralax, Colace, Senna for constipation - Continue Protonix - Start clear liquids - Monitor LFTs 2. Acute cholecystitis - s/p lap jose francisco 2/4 3. Obesity with BMI 33.4 Visit type - Emergency Visit Emergency Visit: Yes ED Registration Date: 09/12/19 Care time: The patient presented to the Emergency Department on the above date and was hospitalized for further evaluation of their emergent condition. - New Patient This patient is new to me today: Yes Date on this admission: 09/17/19 - Critical Care Critical Care patient: No - Discharge Referral Referred to [facility] Med P.C.: No
[2019-09-17] MEDS: POLYETHYLENE GLYCOL 3350 119 GM BTL PO SCH ×2 (11:56→22:19)
--- NOTE | 2019-09-17 17:06 | PN.GI ---
GI Progress Note Subjective: abdominal pain and LTFS improved, MRCP no evidence of CBD stone - Objective Vital Signs: Vital Signs Temperature 98.1 F 09/17/19 16:01 Pulse Rate 78 09/17/19 16:01 Respiratory Rate 18 09/17/19 16:01 Blood Pressure 110/57 L 09/17/19 16:01 O2 Sat by Pulse Oximetry (%) 97 09/17/19 09:00 Constitutional: Well Nourished, Poor Hygeine HENT: Yes: Atraumatic, Tonsillar Exudate Cardiovascular: Yes: Regular Rate and Rhythm Respiratory: Yes: CTA Bilaterally ...Palpate: Yes: Soft. No: Guarding, Hepatomegaly, Mass, Pulsatile Mass, Splenomegaly, Tenderness Labs: CBC, BMP 09/16/19 07:34 09/16/19 07:34 INR, PTT INR 1.08 (0.83-1.09) 09/16/19 12:29 Problem List - Problems (1) S/P laparoscopic cholecystectomy Code(s): Z90.49 - ACQUIRED ABSENCE OF OTHER SPECIFIED PARTS OF DIGESTIVE TRACT (2) Abdominal pain Code(s): R10.9 - UNSPECIFIED ABDOMINAL PAIN (3) Elevated LFTs Assessment/Plan: mixed hepatocellular injury consistent with resolving ischemic hepatitis vs biliary sludge R> Actigall 300mg bid clear liquids Code(s): R94.5 - ABNORMAL RESULTS OF LIVER FUNCTION STUDIES
[2019-09-17] MEDS: DEXTROSE 5%-NORMAL SALINE 1,000 ML IV SCH (18:00)
[2019-09-17] MEDS: METOCLOPRAMIDE HCL INJECTION 10 MG/2 ML VIAL IVPB SCH (18:23)
[2019-09-17] MEDS: DOCUSATE SODIUM 100 MG CAPSULE (FP) PO SCH (22:19)
[2019-09-17] MEDS: URSODIOL 300 MG CAPSULE PO SCH (22:20)
[2019-09-18] MEDS: METOCLOPRAMIDE HCL INJECTION 10 MG/2 ML VIAL IVPB SCH ×2 (01:32→10:41)
[2019-09-18] MEDS: MORPHINE SULFATE 2 MG/ML VIAL IVPUSH PRN (01:37)
[2019-09-18 02:43] LABS: PH,URINE 5.5 (5.0-8.0); URINE APPEARANCE CLEAR; URINE BILIRUBIN NEGATIVE (NEGATIVE); URINE COLOR YELLOW; URINE GLUCOSE (UA) NEGATIVE (NEGATIVE); URINE KETONE NEGATIVE (NEGATIVE); URINE LEUK ESTERASE NEGATIVE (NEGATIVE); URINE NITRITE NEGATIVE (NEGATIVE); URINE PROTEIN NEGATIVE (NEGATIVE)
[2019-09-18] MEDS: SODIUM CHLORIDE 1,000 ML IV SCH (06:08)
[2019-09-18 08:57] LABS: HEMATOCRIT 36.6 % (32.4-45.2); HEMOGLOBIN 12.2 GM/dL (10.7-15.3); MCH 30.1 pg (25.7-33.7); MCHC 33.5 g/dl (32.0-36.0); MEAN PLT VOLUME 9.7 fl (7.5-11.1); PLATELET COUNT 225 K/MM3 (134-434); RBC 4.06 M/mm3 (3.60-5.2); RDW 13.9 % (11.6-15.6); WHITE BLOOD COUNT 8.8 K/mm3 (4.0-10.0)
[2019-09-18 08:59] LABS: BILIRUBIN,DIRECT 0.5 mg/dL (0.0-0.2); BILIRUBIN,TOTAL 0.9 mg/dL (0.2-1); CALCIUM 9.3 mg/dL (8.5-10.1); CREATININE 0.6 mg/dL (0.55-1.3); POTASSIUM 3.8 mmol/L (3.5-5.1); TOT PROT 6.4 g/dl (6.4-8.2)
[2019-09-18] MEDS: ENOXAPARIN NA (PORCINE) 40 MG/0.4 ML DISP.SYRIN SQ SCH (10:41)
[2019-09-18] MEDS: DOCUSATE SODIUM 100 MG CAPSULE (FP) PO SCH (10:41)
[2019-09-18] MEDS: PANTOPRAZOLE 40 MG TABLET PO SCH (10:41)
[2019-09-18] MEDS: URSODIOL 300 MG CAPSULE PO SCH (10:41)
[2019-09-18] MEDS: SENNOSIDES 8.6MG TABLET (FP) PO SCH (10:41)
[2019-09-18] MEDS: POLYETHYLENE GLYCOL 3350 119 GM BTL PO SCH (10:41)
--- NOTE | 2019-09-18 14:22 | PN.GI ---
GI Progress Note Subjective: tolerated diet, abdominal pain resolved after Actigall use, marked improvement in LFTS - Objective Vital Signs: Vital Signs Temperature 98.0 F 09/18/19 10:47 Pulse Rate 103 H 09/18/19 10:47 Respiratory Rate 18 09/18/19 10:47 Blood Pressure 131/76 09/18/19 10:47 O2 Sat by Pulse Oximetry (%) 99 09/17/19 21:00 Eyes: No: Conjunctiva Clear, Occular Prosthesis Neck: No: Supple Cardiovascular: No: Regular Rate and Rhythm Respiratory: No: CTA Bilaterally ...Palpate: Yes: Soft. No: Firm/Rigid, Guarding, Hepatomegaly, Mass, Pulsatile Mass, Splenomegaly, Tenderness Labs: CBC, BMP 09/18/19 07:12 09/18/19 07:12 INR, PTT INR 1.08 (0.83-1.09) 09/16/19 12:29 Problem List - Problems (1) S/P laparoscopic cholecystectomy Code(s): Z90.49 - ACQUIRED ABSENCE OF OTHER SPECIFIED PARTS OF DIGESTIVE TRACT (2) Abdominal pain Assessment/Plan: resolved Code(s): R10.9 - UNSPECIFIED ABDOMINAL PAIN (3) Elevated LFTs Assessment/Plan: multifactorial including secondary to surgery,ischemia and biliary sludge R> continue Actigall 300mg bid for 3 weeks ok to d/c made aware to follow up with Dr Hernandez,if signs and symptoms recur will need ERCP to r/o retained stone Code(s): R94.5 - ABNORMAL RESULTS OF LIVER FUNCTION STUDIES
--- NOTE | 2019-09-18 14:32 | DS ---
Physical Exam: SUBJECTIVE: Patient seen and examined. She has no complaints. She is tolerating a regular diet. OBJECTIVE: Vital Signs Period Temp Pulse Resp BP Sys/Medrano Pulse Ox Last 24 Hr 98.0 F-99.0 F 51-103 18-18 99-131/45-76 99 PHYSICAL EXAM GENERAL: The patient is awake, alert, and fully oriented, in no acute distress. LUNGS: Breath sounds equal, clear to auscultation bilaterally, no wheezes, no crackles, no accessory muscle use. HEART: Regular rate and rhythm, S1, S2 without murmur, rub or gallop. ABDOMEN: Obese, soft, nontender, nondistended, normoactive bowel sounds, no guarding, no rebound, no hepatosplenomegaly, no masses. EXTREMITIES: 2+ pulses, warm, well-perfused, no edema. LABS Laboratory Results - last 24 hr 09/18/19 09/18/19 09/18/19 02:30 07:12 07:12 WBC 8.8 RBC 4.06 Hgb 12.2 Hct 36.6 MCV 90.0 MCH 30.1 MCHC 33.5 RDW 13.9 Plt Count 225 MPV 9.7 Sodium 140 Potassium 3.8 Chloride 108 H Carbon Dioxide 22 Anion Gap 10 BUN 9.0 Creatinine 0.6 Est GFR (CKD-EPI)AfAm 145.80 Est GFR (CKD-EPI)NonAf 125.80 Random Glucose 78 Calcium 9.3 Total Bilirubin 0.9 D Direct Bilirubin 0.5 H AST 83 H ALT 596 H Alkaline Phosphatase 239 H Total Protein 6.4 Albumin 3.0 L Urine Color Yellow Urine Appearance Clear Urine pH 5.5 Ur Specific [place] 1.014 Urine Protein Negative Urine Glucose (UA) Negative Urine Ketones Negative Urine Blood Negative Urine Nitrite Negative Urine Bilirubin Negative Urine Urobilinogen 1.0 Ur Leukocyte Esterase Negative HOSPITAL COURSE: Date of Admission:09/12/19 Date of Discharge: 09/18/19 Discharge Summary Problems reviewed: Yes Reason For Visit: ABD PAIN Current Active Problems Abdominal pain (Acute) Acute cholecystitis (Acute) Elevated LFTs (Acute) S/P laparoscopic cholecystectomy (Acute) Chronic cholecystitis (Chronic) Obesity (BMI 30.0-34.9) (Chronic) Condition: Improved - Instructions Diet, Activity, Other Instructions: You were admitted to [facility] on September 12 because of inflammation of your gallbladder. Your gallbladder was removed by Dr. Black on September 13. After the surgery, you developed abnormalities in your liver blood tests. This was thought to be from sludge released from the gallbladder and inflammation caused by the surgery. You were started on a medication, Actigall (ursodiol), to help break up the sludge. Your liver blood tests started to improve and you are being discharged on September 18. Please continue to take Actigall twice a day until you follow up with a ux manager. A prescription has been sent to [facility]. Please schedule appointments with Dr. Black (surgeon) and Dr. Bora Khan (ux manager) this week. You should also see your primary care physician this week. If you do not have one, you may use the [facility]. Surgery Discharge Instructions Dear RADHA DUMONT, Post Operative Instructions Physical activity Resume your normal everyday activity as tolerated no heavy lifting or exercise until seen by your surgeon. You may walk unlimited amounts of and climb stairs. You may resume driving the car when you feel safe and comfortable behind the wheel and are no longer taking narcotics. Wound care If you have a bandage, leave it on, and keep dry for 48. You may shower 2 days after surgery but do not submerge the incisions. Do not apply lotion or ointments to incisions. If there are tapes present on the skin, they can get wet. Diet There are no dietary restrictions. Eat healthy, high-fiber foods. Drink 6 to 8 glasses of liquid each day. This will assist in keeping your bowels are regular. Pain management You may take Tylenol or acetaminophen or Ibuprofen (for example, Motrin, Advil etc.) Any pain prescription medication ordered should be taken as prescribed for moderate to severe pain. Call Dr. Black for any of the following: Severe pain not relieved by medication Fever of 101 or higher Excessive bleeding or drainage on dressing Inability to urinate If you experience any chest pain or shortness of breath please seek emergency treatment immediately. Call the office to confirm your post op appointment. Referrals: Santos Black MD [Staff Physician] - 1 Week Ubaldo Khan DO [Staff Physician] - 1 Week [facility] [place] [Provider Group] - 1 Week Disposition: HOME - Home Medications Comprehensive Discharge Medication List: Ambulatory Orders Oxycodone HCl/Acetaminophen [Percocet 5-325 mg Tablet] 1 tab PO Q4H PRN #8 tablet MDD 6 09/13/19 Ursodiol [Actigal -] 300 mg PO BID #60 capsule 09/18/19 - Discharge Referral Referred to [facility] Med P.C.: No
[2019-09-18 15:27] VITALS: BP 109/60; PULSE 78; TEMP 98.5
== END 2019-09-18 15:28 | disposition home or self-care (01) | DRG 419 ==
LOC: JER 01:23 → MERGE 07:43 → JERBED 07:43 → J5S 16:53
PROVIDERS: ATTEND Internal Medicine
PROC: 3E1M38Z Irrigation of Peritoneal Cavity using Irrigating Substance, Percutaneous Approach (ICD-10-PCS; 2019-09-13)
PROC: 0FT44ZZ Resection of Gallbladder, Percutaneous Endoscopic Approach (ICD-10-PCS; principal; 2019-09-13 09:00)
DX: K80.00 Calculus of gallbladder with acute cholecystitis without obstruction (principal); R74.0 Nonspecific elevation of levels of transaminase and lactic acid dehydrogenase [LDH]; E66.9 Obesity, unspecified; Z68.33 Body mass index [BMI] 33.0-33.9, adult; R94.5 Abnormal results of liver function studies
CPT/HCPCS: 36415; 71045-TC-FY; 74018-TC-FY; 74181-TC; 76705-TC; 80048; 80053; 80074; 80076; 81003; 82150; 82977; 83690; 83735; 84100; 84703; 85025; 85027; 85610; 85730; 86706; 86850; 86900; 86901; 87086; 87186; 87804; 93005; 93010; 94010; 94760; 99284-25; J1644; J7030

== ENCOUNTER 2023-06-04 20:03 | Emergency (ER) | payer OTHER ==
[2023-06-04 20:08] VITALS: TEMP 98.7; BMI 31.6
[2023-06-04 20:29] LABS: PH,URINE 6.5 (5.0-8.0); URINE APPEARANCE CLEAR; URINE BILIRUBIN NEGATIVE (NEGATIVE); URINE COLOR YELLOW; URINE GLUCOSE (UA) NEGATIVE (NEGATIVE); URINE KETONE NEGATIVE (NEGATIVE); URINE LEUK ESTERASE NEGATIVE (NEGATIVE); URINE NITRITE NEGATIVE (NEGATIVE); URINE PROTEIN NEGATIVE (NEGATIVE); URINE UROBILINOGEN 0.2 mg/dL (0.2-1.0)
[2023-06-04 20:32] LABS: HCG,QUALITATIVE URINE Negative
[2023-06-04] MEDS ORDERED: ONDANSETRON 4 MG/2 ML VIAL IVPUSH ONE (20:49)
[2023-06-04] MEDS ORDERED: ACETAMINOPHEN 1000 MG/100 ML BAG IVPB ONE (20:49)
[2023-06-04] MEDS ORDERED: SODIUM CHLORIDE 1,000 ML IV STA (20:49)
[2023-06-04] MEDS ORDERED: ACETAMINOPHEN INJECTION 100 ML IVPB ONE (21:29)
[2023-06-04] MEDS ORDERED: ONDANSETRON 4 MG/2 ML VIAL ONE (21:29)
[2023-06-04 21:32] LABS: BASO % 0.5 % (0-2.0); EOS % 1.1 % (0-4.5); HEMATOCRIT 40.6 % (32.4-45.2); HEMOGLOBIN 13.6 GM/dL (10.7-15.3); LYMPH % 16.2 % (8-40); MCH 29.5 pg (25.7-33.7); MCHC 33.4 g/dl (32.0-36.0); MEAN CELL VOLUME 88.5 fl (80-96); MEAN PLT VOLUME 8.8 fl (7.5-11.1); MONO % 6.5 % (3.8-10.2); NEUT % 75.7 % (42.8-82.8); PLATELET COUNT 273 10^3/uL (134-434); RBC 4.59 M/mm3 (3.60-5.2); RDW 13.2 % (11.6-15.6); WHITE BLOOD COUNT 14.6 K/mm3 (4.0-10.0)
[2023-06-04 21:45] LABS: INR 1.04 (0.83-1.09); PROTHROMBIN TIME (PATIENT) 12.1 SEC (9.7-13.0)
[2023-06-04 21:47] LABS: ACTIVATED PTT 35.6 SECONDS (25.2-36.5)
[2023-06-04 22:05] LABS: POTASSIUM 3.8 mmol/L (3.5-5.1)
[2023-06-04 22:09] LABS: CALCIUM 9.5 mg/dL (8.5-10.1)
[2023-06-04 22:14] LABS: BILIRUBIN,TOTAL 0.4 mg/dL (0.2-1); TOT PROT 7.8 g/dl (6.4-8.2)
[2023-06-04 22:54] VITALS: BP 113/54; PULSE 68; RESP 18
== END 2023-06-05 02:01 | disposition home or self-care (01) ==
LOC: JER 20:03
PROC: 3E033NZ Introduction of Analgesics, Hypnotics, Sedatives into Peripheral Vein, Percutaneous Approach (ICD-10-PCS; principal; 2023-06-04)
PROC: 3E033GC Introduction of Other Therapeutic Substance into Peripheral Vein, Percutaneous Approach (ICD-10-PCS; 2023-06-04)
PROC: 3E0337Z Introduction of Electrolytic and Water Balance Substance into Peripheral Vein, Percutaneous Approach (ICD-10-PCS; 2023-06-04)
DX: R10.30 Lower abdominal pain, unspecified (principal); R11.0 Nausea; Z20.822 Contact with and (suspected) exposure to COVID-19
CPT/HCPCS: 0241U-QW; 36415; 74177-TC; 76830-TC; 80053; 81003; 83690; 84703; 85025; 85610; 85730; 87081; 87086; 87491; 87591; 87661; 99285-25